=== PATIENT | female | born 1945 | race Caucasian/White ===

== ENCOUNTER 2016-08-17 11:38 | Emergency (ER) | payer OTHER ==
[~2016-08-17] VITALS: Ht 162.6 cm; Wt 49.9 kg
[~2016-08-17 11:38] MED LIST: ASPIR 8181 MG PO; ATENOLOL25 MG PO; CALCIUM + D 5001 TAB PO; CLONAZEPAM0.5 MG PO; ECOTRIN81 M1 PO; KLONOPIN0.5 M1 PO; LEVAQUIN250 MG PO; LISINOPRIL10 M1 PO; LISINOPRIL10 MG PO; MEDROL4 M2 AD; NAPROSYN500 M1 PO; NATURE'S BLEND500 M1 PO; OMEPRAZOLE40 MG PO; TRAMADOL HCL50 M1 PO; TYLENOL #31 TAB PO; ZOCOR 40MG TAB40 MG PO; ZOCOR40 M1 PO
[2016-08-17 11:48] VITALS: BP 185/68
--- NOTE | 2016-08-17 15:14 | ED CARDIAC/CP/PALPITATIONS ---
History of Present Illness General Chief Complaint: Palpitations Stated Complaint: PALPATATIONS Source: patient Exam Limitations: no limitations Vital Signs & Intake/Output Vital Signs & Intake/Output Vital Signs Date Time Temp Pulse Resp B/P Pulse O2 O2 Flow FiO2 Ox Delivery Rate 08/17 1523 97 08/17 1148 97.8 80 20 185/68 97 Room Air Allergies Coded Allergies: Penicillins (ANAPHYLAXIS - TONGUE SWELLED - HOSPITALIZATION 10/07/15) clarithromycin (MOUTH AND THROAT BURNING - HOSPITALIZATION 10/07/15) propoxyphene (FELT WEIRD AND FELT IN ANOTHER WORLD PER PT 10/07/15) tetracycline (UNKNOWN PER PT 10/07/15) Reconcile Medications Aspirin (Ecotrin) 81 MG TABLET.DR 1 TAB PO QPM BLOOD (Reported) Atenolol 25 MG TABLET 1 TAB PO DAILY BP (Reported) Calcium/Vitamin D (Calcium + D) 500 MG/125 IU TAB 1 TAB PO DAILY SUPPLEMENT ( Reported) Clonazepam (Klonopin) 0.5 MG TABLET 1 TAB PO BID ANXIETY (Reported) Clonazepam (Klonopin) 0.5 MG TABLET 1 TAB PO BIDP PRN ANXIETY Lisinopril 10 MG TABLET 1 TAB PO DAILY BP (Reported) Methylprednisolone. (Medrol) 4 MG TAB.DS.PK 1 TAB AD DAILY INFLAMMATION Naproxen (Naprosyn) 500 MG TABLET 1 TAB PO TID PRN PAIN Simvastatin (Zocor*) 40 MG TABLET 1 TAB PO DAILY CHOLESTEROL (Reported) Tramadol HCl 50 MG TABLET 1 TAB PO TID PRN PAIN Triage Note: PT TO ED C/O "HEART POUNDING" AND ANXIETY. STATES SHE HAS BEEN TAKING 0.25MG KLONOPIN BID AND WAS TOLD BY HER PCP THAT THEY COULD NO LONGER FILL IT. PT STATES LAST DOSE WAS YESTERDAY AFTERNOON. STATES SHE FEELS ANXIOUS ABOUT NOT BEING ABLE TO GET A REFILL OF HER KLONOPIN. TEARFUL IN TRIAGE. DENIES PAIN, C/P, DIFF BREATHING. Triage Nurses Notes Reviewed? yes Onset: Gradual Duration: worse persistent since (1 DAY) Timing: recent history Quality/Severity: moderate Radiation: no radiation Activities at Onset: none HPI: Patient is a 71-year-old female with history of anxiety and panic attacks and takes Klonopin presenting to the emergency department with chief complaint of palpitations that worsened this morning. She reports extensive history of panic attacks. She was nervous because she only has 2 pills left. She saw her primary care physician this morning and was advised to come to the emergency department for evaluation because he cannot longer prescribe her that medication. She tried calling outpatient psychiatry, she is on a waiting list. Denies any suicidal or homicidal ideation. Denies any chest pain or shortness of breath. She reports that this morning this felt typical of her panic attacks. It made her nervous to know she only has 2 pills left. She went online and read that she could if she does not hear Klonopin. Denies any nausea or vomiting fevers or chills. No shortness of breath. Denies recent travel. (KAZ TORRES) Past History Travel History Traveled to [place] past 21 day No Medical History Any Pertinent Medical History? see below for history Neurological: NONE EENT: NONE Cardiovascular: hypertension, hyperlipidemia Respiratory: NONE Gastrointestinal: NONE Hepatic: NONE Renal: NONE Musculoskeletal: NONE Psychiatric: anxiety Endocrine: NONE Blood Disorders: NONE Cancer(s): NONE Surgical History Surgical History: non-contributory Psychosocial History What is your primary language Albanian Tobacco Use: Never used ETOH Use: denies use Illicit Drug Use: denies illicit drug use Family History Hx Contributory? No (KAZ TORRES) Review of Systems Review of Systems Constitutional: Reports: no symptoms. Comments Review of systems: See HPI, All other systems negative. Constitutional, no chills fever or weight loss HEENT: No visual changes no sore throat no congestion Cardiovascular: No chest pain , orthopnea or ankle swelling Skin, no jaundice no rashes Respiratory: No dyspnea cough sputum or hemoptysis GI: No nausea no vomiting : No dysuria No hematuria Muscle skeletal: no back pain, no neck pain, Neurologic: No numbness no confusion and no headaches Psych: Positive anxiety, denies increased depression Heme/endocrine: No bruising no bleeding no polyuria or polydipsia Immunology: No splenectomy or history of AIDS (KAZ TORRES) Physical Exam Physical Exam General Appearance: well developed/nourished, no apparent distress, alert, awake , comfortable Cardiovascular: regular rate/rhythm Comments: Well-developed well-nourished person in no acute distress HEENT: Pupils equally round and reactive to light and accommodation. Nose is atraumatic. Neck: Normal inspection Back: Nontender, no CVA tenderness. Full range of motion Cardiovascular: Regular rate and rhythms no murmurs rubs or gallops, normal JVP Respiratory: Chest nontender. No respiratory distress.breath sounds clear to auscultation bilaterally Extremity: No edema Neuro: Alert oriented x3, motor sensory normal Skin: No appreciable rash on exposed skin, skin is warm and dry. Psych: Mood and affect is normal, memory and judgment is normal. Core Measures ACS in differential dx? No Severe Sepsis Present: No Septic Shock Present: No (KAZ TORRES) Progress Differential Diagnosis: ANXIETY, DEPRESSION, MEDICATION REFILL, DEHYDRATION Plan of Care: Orders Procedure Date/time Status TROPONIN LEVEL 08/17 1151 Complete MAGNESIUM 08/17 1151 Complete COMPREHENSIVE METABOLIC PANEL 08/17 1151 Complete EKG 08/17 1140 Active Current Medications Sig/Emmy Start time Last Medication Dose Stop Time Status Admin Lorazepam 0.5 MG ONE ONE 08/17 1515 CAN (Ativan) 08/17 1516 Laboratory Tests 08/17/16 1231: Anion Gap 11, Estimated GFR 55 L, BUN/Creatinine Ratio 23.0, Glucose 115 H, Calcium 10.7 H, Magnesium 1.8, Total Bilirubin 0.5, AST 26, ALT 30, Alkaline Phosphatase 79, Troponin I < 0.01, Total Protein 7.3, Albumin 4.3, Globulin 3.0, Albumin/Globulin Ratio 1.4 08/17/16 1151: CBC w Diff Cancelled, WBC Cancelled, RBC Cancelled, Hgb Cancelled, Hct Cancelled , MCV Cancelled, MCH Cancelled, RDW Cancelled, Plt Count Cancelled, MPV Cancelled, PUBS MCHC Cancelled Initial ED EKG: NSR, SINUS RHYTHM, 70 BPM, LEFT AXIS DEVIATION, ANTERIOR INFARCT OLD Prior EKG: unchanged Comments: Patient is calm and cooperative, vitals within normal range. Patient essentially referring to the emergency department for evaluation of palpitations from chronic panic attacks and medication refill. No acute distress at this time. EKG is unchanged. Patient will be given prescriptions for Klonopin and will follow up outpatient with psychiatry. Discussed with Dr. Chavira and she agrees with plan. (KAZ TORRES) Departure Departure Time of Disposition: 1512 Disposition: HOME OR SELF CARE Condition: Stable Clinical Impression Primary Impression: Palpitations Secondary Impressions: Anxiety Referrals: CATHERINE SNOW MD (PCP/Family) Additional Instructions: Follow-up with your primary care physician cALL TO MAKE APPT. Take Klonopin as prescribed. Return for worsening symptoms or concerns. Departure Forms: Customer Survey General Discharge Information Prescriptions: Current Visit Scripts Clonazepam (Klonopin) 1 TAB PO BIDP PRN ANXIETY #12 TAB (KAZ TORRES) PA/CIRCUIT MANAGER Co-Sign Statement Statement: ED Attending supervision documentation- [X] I saw and evaluated the patient. I have also reviewed all the pertinent lab results and diagnostic results. I agree with the findings and the plan of care as documented in the PA's/CIRCUIT MANAGER's documentation. [X] I have reviewed the ED Record and agree with the PA's/CIRCUIT MANAGER's documentation. [] Additions or exceptions (if any) to the PAs/CIRCUIT MANAGER's note and plan are summarized below: [] (ELISEO STRATTON,LLOYD) Critical Care Note Critical Care Note Critical Care Time: non-applicable (KAZ TORRES)
[2016-08-17] MEDS ORDERED: KLONOPIN0.5 M1 PO (15:23)
== END 2016-08-17 15:45 ==
LOC: ERH 11:38
DX: R00.2 Palpitations (principal); F41.9 Anxiety disorder, unspecified
CPT/HCPCS: 93005; 93010

== ENCOUNTER 2016-09-05 12:04 | Emergency (ER) | payer OTHER ==
[~2016-09-05] VITALS: Ht 163.8 cm; Wt 49.0 kg
[2016-09-05 12:13] VITALS: BP 124/72
[2016-09-05] MEDS ORDERED: CLONAZEPAM0.5 M2 PO (12:46)
[2016-09-05] MEDS ORDERED: PHAZYME250 MG PO (12:46)
--- NOTE | 2016-09-05 12:48 | ED GENERAL ADULT ---
History of Present Illness General Chief Complaint: General Adult Stated Complaint: ANXIOUS,"I HAVE GAS ALL THE TIME" Source: patient, family, old records Exam Limitations: no limitations Vital Signs & Intake/Output Vital Signs & Intake/Output Vital Signs Date Time Temp Pulse Resp B/P Pulse O2 O2 Flow FiO2 Ox Delivery Rate 09/05 1213 96.7 59 18 124/72 95 Room Air Room Air Allergies Coded Allergies: Penicillins (ANAPHYLAXIS - TONGUE SWELLED - HOSPITALIZATION 10/07/15) clarithromycin (MOUTH AND THROAT BURNING - HOSPITALIZATION 10/07/15) propoxyphene (FELT WEIRD AND FELT IN ANOTHER WORLD PER PT 10/07/15) tetracycline (UNKNOWN PER PT 10/07/15) Reconcile Medications Aspirin (Ecotrin) 81 MG TABLET.DR 1 TAB PO QPM BLOOD (Reported) Atenolol 25 MG TABLET 1 TAB PO DAILY BP (Reported) Calcium/Vitamin D (Calcium + D) 500 MG/125 IU TAB 1 TAB PO DAILY SUPPLEMENT ( Reported) Clonazepam (Klonopin) 0.5 MG TABLET 1 TAB PO BID ANXIETY (Reported) Clonazepam 0.5 MG TABLET 0.5 TAB PO BIDP PRN anxiety Clonazepam (Klonopin) 0.5 MG TABLET 1 TAB PO BIDP PRN ANXIETY Lisinopril 10 MG TABLET 1 TAB PO DAILY BP (Reported) Methylprednisolone. (Medrol) 4 MG TAB.DS.PK 1 TAB AD DAILY INFLAMMATION Naproxen (Naprosyn) 500 MG TABLET 1 TAB PO TID PRN PAIN Simethicone (Phazyme) 250 MG CAPSULE 1 CAP PO Q6P PRN gas Simvastatin (Zocor*) 40 MG TABLET 1 TAB PO DAILY CHOLESTEROL (Reported) Tramadol HCl 50 MG TABLET 1 TAB PO TID PRN PAIN Triage Note: TRIAGE: 71 Y/O FEMALE PRESENTS C/O "I HAVE A LOT OF GAS." ONSET WEDNESDAY NIGHT AFTER INGESTION OF ICE CREAM AND FRAPPE. "I'VE HAD THIS PROBLEM BEFORE. I HAVE THE GURGLING IN MY STOMACH." REGULAR BOWEL MOVEMENTS, LAST BM THIS MORNING. +ANXIETY - 0.5MG KLONOPIN. "MY PCP IS NO LONGER ALLOWED TO WRITE FOR THEM. THE OUTPATIENT PLACE COULDN'T GET ME AN APPOINTMENT UNTIL THIS UPCOMING WEDNESDAY. I'M DOWN TO 2 PILLS. I WAS TOLD TO COME HERE IF I RAN INTO ANY ISSUES." CARD IN WALLET. Triage Nurses Notes Reviewed? yes Onset: Last week Duration: day(s):, constant, continues in ED Timing: recent history Injury Environment: home Severity: moderate Modifying Factors: Improves With: medication. Worsens With: eating, other (lactose sugar). LMP (ages 10-50): post menopausal : No Patient currently breastfeeds: No HPI: Several days prior to admission she complains of increased gas after eating ice cream and drinking frappe with mild generalized abdominal discomfort nonradiating occurring intermittently. She is also worried that she will run out of Klonopin as her prescriber can no longer write for it. Denies fever chills nausea vomiting diarrhea chest pain cough shortness of breath headache dysuria rash bleeding. Past History Travel History Traveled to [place] past 21 day No Medical History Any Pertinent Medical History? see below for history Neurological: NONE EENT: NONE Cardiovascular: hypertension, hyperlipidemia Respiratory: NONE Gastrointestinal: NONE Hepatic: NONE Renal: NONE Musculoskeletal: NONE Psychiatric: anxiety Endocrine: NONE Blood Disorders: NONE Cancer(s): NONE Surgical History Surgical History: non-contributory Psychosocial History What is your primary language Bengali Tobacco Use: Never used ETOH Use: denies use Illicit Drug Use: denies illicit drug use Family History Hx Contributory? No Review of Systems Review of Systems Constitutional: Reports: no symptoms. EENTM: Reports: no symptoms. Respiratory: Reports: no symptoms. Cardiovascular: Reports: no symptoms. GI: Reports: see HPI, abdominal pain, bloating. Genitourinary: Reports: no symptoms. Musculoskeletal: Reports: no symptoms. Skin: Reports: no symptoms. Neurological/Psychological: Reports: see HPI, anxiety. Hematologic/Endocrine: Reports: no symptoms. Immunologic/Allergic: Reports: no symptoms. All Other Systems: Reviewed and Negative Physical Exam Physical Exam General Appearance: well developed/nourished, alert, awake, anxious, mild distress Head: atraumatic, normal appearance Eyes: Bilateral: normal appearance, PERRL, EOMI. Ears, Nose, Throat: normal pharynx, normal ENT inspection, moist mucus membranes Neck: normal inspection, supple, full range of motion, no midline tenderness Respiratory: normal breath sounds, chest non-tender, no respiratory distress, quiet respiration, lungs clear Cardiovascular: regular rate/rhythm, normal peripheral pulses, norml femoral pulses equa Peripheral Pulses: 4+ carotid (R), 4+ carotid (L) Gastrointestinal: normal bowel sounds, soft, non-tender, no organomegaly Back: normal inspection, normal range of motion, no vertebral tenderness Extremities: normal inspection, normal capillary refill, normal range of motion, no edema Neurologic/Psych: no motor/sensory deficits, awake, alert, oriented x 3, normal gait, normal mood/affect, steel erector apprentice II-XII nml as tested Reflexes: 2+: bicep (R), bicep (L). Skin: intact, normal color, warm/dry Lymphatic: no anterior cervical seda Core Measures ACS in differential dx? No CVA/TIA Diagnosis: No Severe Sepsis Present: No Septic Shock Present: No Progress Differential Diagnoses I considered the following diagnoses in my evaluation of the patient: Gastritis anxiety food indiscretion Plan of Care: Current Medications Sig/Emmy Start time Last Medication Dose Stop Time Status Admin Al Hydroxide/Mg 30 ML ONCE ONE 09/05 1245 UNVr Hydroxide 09/05 1246 (Maalox Plus) Clonazepam 0.25 MG ONCE ONE 09/05 1245 UNVr (KlonoPIN) 09/05 1246 Initial ED EKG: none Departure Departure Time of Disposition: 1243 Disposition: HOME OR SELF CARE Condition: Stable Clinical Impression Primary Impression: Lactose intolerance in adult Secondary Impressions: Medication refill Referrals: EDY STRATTON,CATHERINE Rojo (PCP/Family) Departure Forms: Customer Survey General Discharge Information Prescriptions: Current Visit Scripts Simethicone (Phazyme) 1 CAP PO Q6P PRN gas #30 CAP Clonazepam 0.5 TAB PO BIDP PRN anxiety #10 TAB Critical Care Note Critical Care Note Critical Care Time: non-applicable
== END 2016-09-05 13:04 ==
LOC: ERH 12:04
DX: E73.9 Lactose intolerance, unspecified (principal); Z76.0 Encounter for issue of repeat prescription

== ENCOUNTER 2017-08-06 10:48 | Inpatient (IN) | payer OTHER ==
[~2017-08-06] VITALS: Ht 163.8 cm; Wt 48.5 kg
[~2017-08-06 10:48] MED LIST changes: +ASPIRIN EC81 M1 PO; +ATENOLOL25 M1 PO; -ATENOLOL25 MG PO; +CLONAZEPAM0.5 M2 PO; -ECOTRIN81 M1 PO; +PHAZYME250 MG PO; +VITAMIN D350000 UNIT PO
--- NOTE | 2017-08-06 11:10 | ED GENERAL ADULT ---
History of Present Illness General Chief Complaint: General Adult Stated Complaint: BIBA "DOESNT FEEL WELL' Source: patient, family Exam Limitations: no limitations Vital Signs & Intake/Output Vital Signs & Intake/Output Vital Signs Date Time Temp Pulse Resp B/P B/P Pulse O2 O2 Flow FiO2 Mean Ox Delivery Rate 08/07 0600 98.0 56 18 144/72 98 08/06 1901 64 18 160/76 100 Room Air 02 1858 64 18 160/76 02 1631 74 18 190/80 100 Room Air 08/06 1603 98.9 88 20 180/86 99 Room Air 08/06 1437 98.7 66 18 185/74 98 ED Intake and Output 08/07 0000 08/06 1200 Intake Total 70 Output Total 150 Balance -80 Intake, IV 70 Intake, Oral 0 Number 0 Bowel Movements Output, Urine 150 Patient 107 lb 107 lb Weight Weight Reported by Patient Reported by Patient Measurement Method Allergies Coded Allergies: Penicillins (ANAPHYLAXIS - TONGUE SWELLED - HOSPITALIZATION 10/07/15) clarithromycin (MOUTH AND THROAT BURNING - HOSPITALIZATION 10/07/15) propoxyphene (FELT WEIRD AND FELT IN ANOTHER WORLD PER PT 10/07/15) tetracycline (UNKNOWN PER PT 10/07/15) Reconcile Medications Aspirin (Ecotrin*) 81 MG TABLET.DR 1 TAB PO DAILY HEART HEALTH (Reported) Atenolol 25 MG TABLET 1 TAB PO DAILY HIGH BLOOD PRESSURE (Reported) Cholecalciferol (Vitamin D3) (Vitamin D) 5,000 UNIT TABLET 1 TAB PO DAILY SUPPLEMENT (Reported) Clonazepam (Klonopin) 0.5 MG TABLET 0.5 TAB PO DAILY ANXIETY (Reported) Lisinopril 10 MG TABLET 1 TAB PO DAILY BP (Reported) Simvastatin (Zocor*) 40 MG TABLET 1 TAB PO DAILY CHOLESTEROL (Reported) Triage Note: BIBA FROM HOME, PT C/O "DON'T FEEL RIGHT", PT TEARY ON ARRIVAL "I HAVE A LOT OF STRESS, AND HAD A PANIC ATTACK, I TOOK MY MED FOR IT BUT ONLY A HALF HOUR AGO" "MY 5 YEARS AGO, AND I HAVE A SON WITH A CHEMICAL IMBALANCE THAT I HAVE TO TAKE CARE OF". Triage Nurses Notes Reviewed? yes Onset: Abrupt Duration: hour(s):, constant, continues in ED Timing: recent history Injury Environment: home No Modifying Factors: none HPI: 72-year-old female comes into the emergency room for further evaluation of not feeling well this morning. Patient reports that she woke up this morning and started to experience multiple symptoms. She was feeling lightheaded. She is complaining of a funny sensation in her chest and some numbness in her left arm and right arm. She denies any fever chills vomiting. She reports that she is currently under a lot of stress. The year anniversary of her 's is coming out in a couple weeks. Denies any shortness of breath. Nothing seems to make the symptoms better. She reports that she's been recently experiencing headaches on the right side. She saw her primary care doctor who told her he thought it was related to pinched nerve in her neck from arthritis. She reports that she was taking Tylenol for the headaches and they seemed to be improving. (Joshua Christensen) Past History Travel History Traveled to [place] past 21 day No Medical History Any Pertinent Medical History? 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 No (Joshua Christensen) Review of Systems Review of Systems Constitutional: Reports: see HPI. EENTM: Reports: no symptoms. Respiratory: Reports: see HPI. Cardiovascular: Reports: see HPI. GI: Reports: no symptoms. Genitourinary: Reports: no symptoms. Musculoskeletal: Reports: see HPI. Skin: Reports: no symptoms. Neurological/Psychological: Reports: see HPI. Hematologic/Endocrine: Reports: no symptoms. Immunologic/Allergic: Reports: no symptoms. All Other Systems: Reviewed and Negative (Joshua Christensen) Physical Exam Physical Exam General Appearance: well developed/nourished, alert, awake, anxious Head: atraumatic, normal appearance Eyes: Bilateral: normal appearance, PERRL, EOMI. Ears, Nose, Throat: normal pharynx, normal ENT inspection, hearing grossly normal Neck: normal inspection, full range of motion Respiratory: normal breath sounds, no respiratory distress Cardiovascular: regular rate/rhythm Gastrointestinal: soft, non-tender Back: normal inspection Extremities: normal inspection, normal range of motion, no edema Neurologic/Psych: no motor/sensory deficits, awake, oriented x 3, normal gait, normal mood/affect Skin: intact, normal color Core Measures ACS in differential dx? No CVA/TIA Diagnosis: No Sepsis Present: No Sepsis Focused Exam Completed? No (Joshua Christensen) Progress Differential Diagnoses I considered the following diagnoses in my evaluation of the patient: Anxiety, MN, CVA, TIA, electrolyte imbalance, anemia, Plan of Care: Orders Procedure Date/time Status CBC WITHOUT DIFFERENTIAL 08/08 0600 Active BASIC ELECTROLYTES PLUS BUN&CR 08/08 0600 Active Nothing by Mouth 08/07 B Active PARTIAL THROMBOPLASTIN TIME 08/07 1715 Active PARTIAL THROMBOPLASTIN TIME 08/07 0600 Complete CBC WITHOUT DIFFERENTIAL 08/07 0600 Complete BASIC ELECTROLYTES PLUS BUN&CR 08/07 0600 Complete Heparin Drip- ACS 08/07 0012 Active EKG 08/07 UNK Active EKG 08/06 2311 Active PARTIAL THROMBOPLASTIN TIME 08/06 2300 Complete TROPONIN LEVEL 08/06 2200 Complete EKG 08/06 2200 Active Teach/Educate 08/06 1930 Active Pain Treatment and Response 08/06 1930 Active Nutritional Intake, Monitor 08/06 193 Active Isolation 08/06 1930 Active Patient Care Conference 08/06 1930 Active Activity/Ambulation 08/06 1930 Active Intake & Output 08/06 1922 Active Patient Data 08/06 1634 Active TROPONIN LEVEL 08/06 1609 Complete EKG 08/06 1609 Active ED Holding Orders 08/06 1603 Active Admit to inpatient 08/06 1603 Active Vital Signs 08/06 1603 Active Code Status 08/06 1603 Active TROPONIN LEVEL 08/06 1430 Complete EKG 08/06 1430 Active THYROID STIMULATING HORMONE 08/06 1128 Active LIPID PANEL 08/06 1128 Active GLYCOSYLATED HGB 08/06 1128 Active Lab Add-on Test 08/06 UNK Active ECHOCARDIOGRAM 08/06 UNK Active Current Medications Sig/Emmy Start time Last Medication Dose Stop Time Status Admin Clonazepam 0.25 MG TIDPRN 08/07 1815 AC 08/07 (KlonoPIN) 08/14 0959 0821 Atorvastatin Calcium 40 MG 1700 08/07 1700 AC (Lipitor) Aspirin Buffered 81 MG DAILY 08/07 1000 AC 08/07 (Ecotrin) 0821 Atenolol 25 MG DAILY 08/07 1000 AC 08/07 (Tenormin) 0822 Clopidogrel Bisulfate 75 MG DAILY 08/07 1000 AC 08/07 (Plavix) 0822 Nitroglycerin 0.5 GM Q6 PRN 08/06 2245 AC (Nitro-Bid) Metoprolol Tartrate 12.5 MG BID 08/06 2200 CAN (Lopressor) Acetaminophen 500 MG Q6P PRN 08/06 2030 AC (Tylenol) Acetaminophen 500 MG Q6P PRN 08/06 2030 AC (Tylenol) Lisinopril 10 MG DAILY 08/06 1808 AC 08/07 (Prinivil) 0822 Heparin Sodium 25,000 UNIT Q24H 08/06 1545 AC 08/06 (Porcine) 1735 (Heparin) Sodium Chloride 500 ML Laboratory Tests 08/07/17 0630: Anion Gap 12, Estimated GFR > 60, BUN/Creatinine Ratio 23.8, APTT 52 H, CBC w Diff NO MAN DIFF REQ, RBC 3.82 L, MCV 87.3, MCH 29.4, MCHC 33.7, RDW 12.7, MPV 8.3, Gran % 68.6, Lymphocytes % 19.2 L, Monocytes % 9.8 H, Eosinophils % 1.6, Basophils % 0.8, Absolute Granulocytes 3.8, Absolute Lymphocytes 1.1 L, Absolute Monocytes 0.5, Absolute Eosinophils 0.1, Absolute Basophils 0 08/06/17 2255: Troponin I 0.12 *H, APTT > 120 *H 08/06/17 1609: Troponin I 0.16 *H 08/06/17 1440: Troponin I 0.16 *H Diagnostic Imaging: Viewed by Me: Radiology Read, CT Scan. Discussed w/RAD: Radiology Read, CT Scan. Radiology Impression: PATIENT: PAIGE WRIGHT PRESENT AGE: 72 PATIENT ACCOUNT NO: [id number] : 45 LOCATION: [facility] ORDERING PHYSICIAN: Joshua HIDALGO SERVICE DATE: 08/06/17-1434 EXAM TYPE: RAD - XRY-CHEST XRAY, SINGLE VIEW EXAMINATION:\\H\\ \\N\\XR CHEST CLINICAL INFORMATION: Apical lordotic view recommended to assess abnormality left lung apex on chest x -ray today COMPARISON: Prior chest x-ray today TECHNIQUE: Portable apical lordotic view obtained. FINDINGS: The small metallic foreign bodies seen over the left lung apex on the prior portable chest x-ray today is not on this exam. Consistent with a artifact. No acute abnormality of the chest. IMPRESSION: Small metallic foreign body seen on the prior chest x-ray today is not on this exam consistent with artifact. No acute change of chest. DICTATED BY: Waldemar Martinez MD DATE/TIME DICTATED:08/06/171517 LANG PATH THERAPIST:JERRI DATE/TIME TRANSCRIBED:08/06/171517 CONFIDENTIAL, DO NOT COPY WITHOUT APPROPRIATE AUTHORIZATION. <Electronically signed in Other Vendor System> SIGNED BY: Waldemar Martinez MD 08/06/17 1523, PATIENT: PAIGE WRIGHT PRESENT AGE: 72 PATIENT ACCOUNT NO: [id number] : 45 LOCATION: [facility] ORDERING PHYSICIAN: Joshua HIDALGO SERVICE DATE: 08/06/17 EXAM TYPE : RAD - XRY-PORTABLE CHEST XRAY EXAMINATION: XR PORTABLE CHEST CLINICAL INFORMATION: Chest pain. COMPARISON: Chest x-ray 11/25/2015. TECHNIQUE: Portable AP portable 80 degrees semierect view of the chest was obtained. FINDINGS: The lung alejo are well-expanded bilaterally. There is a relatively well-defined 2 mm hyperdensity projected between the posterior left second and third ribs which was not seen on the prior study. It may be artifactual or a small foreign body. The cardiac silhouette is normal. There are no pleural effusions or pneumothorax. The central pulmonary vasculature is normal. The hilar regions appear normal. There are no acute osseous findings. IMPRESSION: 1. There are no acute cardiopulmonary findings. 2. A density projected over the posterior left second and third ribs may be artifactual. This could be further evaluated with a lordotic view of the chest. DICTATED BY: Barney Grey MD DATE/TIME DICTATED:08/22 LANG PATH THERAPIST:JERRI DATE/TIME TRANSCRIBED:08/06/171155 CONFIDENTIAL, DO NOT COPY WITHOUT APPROPRIATE AUTHORIZATION. <Electronically signed in Other Vendor System> SIGNED BY: Barney Grey MD 08/06/17 1204, PATIENT: PAIGE WRIGHT PRESENT AGE: 72 PATIENT ACCOUNT NO: [id number] : 45 LOCATION: [facility] ORDERING PHYSICIAN: Joshua HIDALGO SERVICE DATE: 08/06/17 EXAM TYPE: CAT - CT HEAD WO IV CONTRAST EXAMINATION: CT HEAD WITHOUT CONTRAST CLINICAL INFORMATION: Headaches and numbness. COMPARISON: CT scan of the head 04/30/2017. TECHNIQUE: Contiguous axial imaging was performed from the skull base to vertex without intravenous administration of contrast. DLP: 601.7 mGy-cm FINDINGS: There is no evidence of acute intracranial hemorrhage or territorial infarction. No abnormal mass effect or midline shift is seen. Rico to white matter differentiation is well preserved. No extra-axial fluid collections are identified. The ventricles are normal in size. There is no abnormal attenuation within the brain parenchyma. The osseous structures and soft tissues are normal. There are atheromatous calcifications of the bilateral cavernous internal carotid and left vertebral arteries. The mastoid air cells and visualized portions of the paranasal sinuses are well aerated. IMPRESSION: 1. There are no acute bleeds or territorial infarcts. No masses are demonstrated. 2. There is no mastoid air cell or paranasal sinus opacification. DICTATED BY: Barney Grey MD DATE/TIME DICTATED: 08/06/171135 LANG PATH THERAPIST:JERRI DATE/TIME TRANSCRIBED:08/06/171135 CONFIDENTIAL, DO NOT COPY WITHOUT APPROPRIATE AUTHORIZATION. <Electronically signed in Other Vendor System> SIGNED BY: Barney Grey MD 08/06/17 1149 Initial ED EKG: normal sinus rhythm, rate (67) Repeat EKG: unchanged (Joshua Christensen) Departure Departure Disposition: STILL A PATIENT Condition: Stable Clinical Impression Primary Impression: Non-STEMI (non-ST elevated myocardial infarction) Referrals: Allen Metcalf MD (PCP/Family) Departure Forms: Customer Survey General Discharge Information Admission Note Spoke With: Tano Epstein MD Documentation of Exam: Documentation of any treatments & extenuating circumstances including Concerns Regarding Discharge (functional status, medication knowledge or non-compliance, living conditions, etc.) that warrant an admission rather than observation: Patient will require IV heparin. Cardiac telemetry. Serial troponins. Cardiac consultation. Echocardiogram. (Joshua Christensen) PA/RETORT PRESS OPERATOR Co-Sign Statement Statement: ED Attending supervision documentation- [X] I saw and evaluated the patient. I have also reviewed all the pertinent lab results and diagnostic results. I agree with the findings and the plan of care as documented in the PA's/RETORT PRESS OPERATOR's documentation. [X] I have reviewed the ED Record and agree with the PA's/RETORT PRESS OPERATOR's documentation. [] Additions or exceptions (if any) to the PAs/RETORT PRESS OPERATOR's note and plan are summarized below: [] (Cait STRATTON,Steph) Critical Care Note Critical Care Note Critical Care Time: non-applicable (Joshua Christensen)
[2017-08-06 11:36] LABS: ABSOLUTE BASOPHIL COUNT 0 /CUMM (0.0-0.2); ABSOLUTE EOSINOPHIL COUNT 0.1 /CUMM (0.0-0.7); ABSOLUTE GRANULOCYTE CT 4.4 /CUMM (1.4-6.5); ABSOLUTE LYMPH COUNT 0.6 /CUMM (1.2-3.4); ABSOLUTE MONOCYTE COUNT 0.4 /CUMM (0.10-0.60); BASOPHIL % 0.5 % (0.0-2.0); EOSINOPHIL % 1.1 % (0-5); GRANULOCYTE % 80.7 % (42.2-75.2); HEMATOCRIT 38.3 % (37-47); MEAN CORPUSCULAR HGB 29.1 PG (27.0-31.0); MEAN CORPUSCULAR HGB CONC 33.3 G/DL (33.0-37.0); MEAN CORPUSCULAR VOLUME 87.5 FL (81.0-99.0); MEAN PLATELET VOLUME 7.4 FL (7.4-10.4); PLATELET COUNT 198 /CUMM (130-400); RBC DISTRIBUTION WIDTH 12.8 % (11.5-14.5); RED BLOOD CELL CT 4.37 /CUMM (4.20-5.40); WHITE BLOOD CELL COUNT 5.5 /CUMM (4.8-10.8)
--- NOTE | 2017-08-06 11:49 | CT SCAN REPORT ---
EXAMINATION: CT HEAD WITHOUT CONTRAST CLINICAL INFORMATION: Headaches and numbness. COMPARISON: CT scan of the head 04/30/2017. TECHNIQUE: Contiguous axial imaging was performed from the skull base to vertex without intravenous administration of contrast. DLP: 601.7 mGy-cm FINDINGS: There is no evidence of acute intracranial hemorrhage or territorial infarction. No abnormal mass effect or midline shift is seen. Rico to white matter differentiation is well preserved. No extra-axial fluid collections are identified. The ventricles are normal in size. There is no abnormal attenuation within the brain parenchyma. The osseous structures and soft tissues are normal. There are atheromatous calcifications of the bilateral cavernous internal carotid and left vertebral arteries. The mastoid air cells and visualized portions of the paranasal sinuses are well aerated. IMPRESSION: 1. There are no acute bleeds or territorial infarcts. No masses are demonstrated. 2. There is no mastoid air cell or paranasal sinus opacification.
--- NOTE | 2017-08-06 12:04 | RADIOLOGY REPORT ---
EXAMINATION: XR PORTABLE CHEST CLINICAL INFORMATION: Chest pain. COMPARISON: Chest x-ray 11/25/2015. TECHNIQUE: Portable AP portable 80 degrees semierect view of the chest was obtained. FINDINGS: The lung alejo are well-expanded bilaterally. There is a relatively well-defined 2 mm hyperdensity projected between the posterior left second and third ribs which was not seen on the prior study. It may be artifactual or a small foreign body. The cardiac silhouette is normal. There are no pleural effusions or pneumothorax. The central pulmonary vasculature is normal. The hilar regions appear normal. There are no acute osseous findings. IMPRESSION: 1. There are no acute cardiopulmonary findings. 2. A density projected over the posterior left second and third ribs may be artifactual. This could be further evaluated with a lordotic view of the chest.
--- NOTE | 2017-08-06 15:23 | RADIOLOGY REPORT ---
EXAMINATION:\H\ \N\XR CHEST CLINICAL INFORMATION: Apical lordotic view recommended to assess abnormality left lung apex on chest x-ray today COMPARISON: Prior chest x-ray today TECHNIQUE: Portable apical lordotic view obtained. FINDINGS: The small metallic foreign bodies seen over the left lung apex on the prior portable chest x-ray today is not on this exam. Consistent with a artifact. No acute abnormality of the chest. IMPRESSION: Small metallic foreign body seen on the prior chest x-ray today is not on this exam consistent with artifact. No acute change of chest.
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
[2017-08-06] MEDS ORDERED: VITAMIN D5000 UNIT PO (16:43)
--- NOTE | 2017-08-06 20:30 | Admission Certification ---
Admission Certification Certification Statement - As attending physician, I certify that at the time of - admission, based on clinical presentation, severity of - symptoms, need for further diagnostic testing and - therapeutic interventions, and risk of adverse outcomes - without in-hospital treatment, in my clinical assessment, - this patient requires an acute hospital stay for a minimum - of two nights or longer. I have also considered psychsocial - factors such as support system, advanced age, financial - issues, cognitive issues, and failed out-patient treatments, - past re-admission history, safety of patient, and lack of - compliance as applicable. Specific rationale supporting this admission is: NSTEMI
--- NOTE | 2017-08-06 20:56 | Cons- Cardiology ---
General Information and HPI Consulting Request Date of Consult: 08/06/17 Requested By: Tano Epstein MD History of Present Illness: Anabella is a 72 year old female with history of anxiety, dyslipidemia and hypertension. Over the past few days this patient has noted a left neck and posterior neck discomfort. This discomfort was associated with a paresthesia in he left arm and a left shoulder discomfort without any definite predordial chest pain. She denies shortness of breath but has had some lightheadedness and palpitations. She denies nausea, vomiting or diaphoresis. In the ER the patient was noted to be very hypertensive. This patient is noted to have a positive troponin. Allergies/Medications Allergies: Coded Allergies: Penicillins (ANAPHYLAXIS - TONGUE SWELLED - HOSPITALIZATION 10/07/15) clarithromycin (MOUTH AND THROAT BURNING - HOSPITALIZATION 10/07/15) propoxyphene (FELT WEIRD AND FELT IN ANOTHER WORLD PER PT 10/07/15) tetracycline (UNKNOWN PER PT 10/07/15) Home Med List: Aspirin (Ecotrin*) 81 MG TABLET.DR 1 TAB PO DAILY HEART HEALTH (Reported) Atenolol 25 MG TABLET 1 TAB PO DAILY HIGH BLOOD PRESSURE (Reported) Cholecalciferol (Vitamin D3) (Vitamin D) 5,000 UNIT TABLET 1 TAB PO DAILY SUPPLEMENT (Reported) Clonazepam (Klonopin) 0.5 MG TABLET 0.5 TAB PO DAILY ANXIETY (Reported) Lisinopril 10 MG TABLET 1 TAB PO DAILY BP (Reported) Simvastatin (Zocor*) 40 MG TABLET 1 TAB PO DAILY CHOLESTEROL (Reported) Review of Systems Review of Systems: anxiety Past History Travel History Traveled to [place] past 21 day No Medical History Neurological: NONE EENT: NONE Cardiovascular: hypertension, hyperlipidemia Respiratory: NONE Gastrointestinal: NONE Hepatic: NONE Renal: NONE Musculoskeletal: NONE Psychiatric: anxiety Endocrine: NONE Blood Disorders: NONE Cancer(s): NONE SIGHT EFFECTS SPECIALIST/Reproductive: NONE Surgical History Surgical History: non-contributory Psychosocial History ETOH Use: denies use Illicit Drug Use: denies illicit drug use Exam & Diagnostic Data Vital Signs and I&O Vital Signs Date Time Temp Pulse Resp B/P B/P Pulse O2 O2 Flow FiO2 Mean Ox Delivery Rate 08/06 1901 64 18 160/76 100 Room Air 08/06 1858 64 18 160/76 08/06 1631 74 18 190/80 100 Room Air 08/06 1603 98.9 88 20 180/86 99 Room Air 08/06 1437 98.7 66 18 185/74 98 08/06 1102 98.1 81 18 176/75 99 Room Air Room Air Intake & Output 08/06 1600 08/06 0800 08/06 0000 08/05 1600 08/05 0800 08/05 0000 Intake Total Output Total Balance Patient 107 lb Weight Weight Reported by Patient Measurement Method Physical Exam: General: WD/WN female in NAD; alert and oriented x 3 HEENT: NC/AT, PERRL, EOMI Neck: no JVD, left carotid bruit Heart: RRR with 2/6 systolic murmur Lungs: clear bilaterally Abdomen: soft, NT, +ve bowel sounds Extremities: no edema Assessment/Plan Assessment/Plan * This patient has symptoms and positive troponin consistent with a NSTEMI. Begin anticaogulation with aspirin, Plavix and IV heparin. Begin NTG paste 1/2 inch Q 6 hours and continue her statin. * This patient is hypertensive. Continue current dose of Atenolol and increase ACEI as necessary to control blood pressure. * Obtain an echocardiogram. * Follow cardiac enzymes until they peak. Consult Acknowledgment - Thank you for your consult request.
[2017-08-06 23:34] LABS: PTT > 120 SEC (25-37)
[2017-08-07 06:00] VITALS: BP 144/72
--- NOTE | 2017-08-07 08:10 | PN- Housestaff ---
Earline STRATTON,Yulissa 08/07/17 0810: Subjective Follow-up For: elevated troponins Complaints: no complaints Tele-Events Since Last Visit: NSR Subjective: Patient was seen and examined at bedside. No overnight events. Offers no complaints. She denies chest pain, chest pressure, palpitations, shortness of breath, fever, headache, altered sensation. Review of Systems Constitutional: Reports: no symptoms. Cardiovascular: Reports: no symptoms. Respiratory: Reports: no symptoms. Gastrointestinal: Reports: no symptoms. Genitourinary: Reports: no symptoms. Musculoskeletal: Reports: no symptoms. Objective Last 24 Hrs of Vital Signs/I&O Vital Signs Date Time Temp Pulse Resp B/P B/P Pulse O2 O2 Flow FiO2 Mean Ox Delivery Rate 08/07 0600 98.0 56 18 144/72 98 08/06 1901 64 18 160/76 100 Room Air 08/06 1858 64 18 160/76 08/06 1631 74 18 190/80 100 Room Air 08/06 1603 98.9 88 20 180/86 99 Room Air 08/06 1437 98.7 66 18 185/74 98 Intake & Output 08/07 1600 08/07 0800 08/07 0000 Intake Total 56 70 Output Total 150 Balance 56 -80 Intake, IV 56 70 Intake, Oral 0 Number 0 Bowel Movements Output, Urine 150 Patient 107 lb Weight Weight Reported by Patient Measurement Method Physical Exam General Appearance: Alert, Oriented X3, Cooperative, No Acute Distress HEENT: PERRLA Cardiovascular: Regular Rate, Normal S1, Normal S2 Lungs: Clear to Auscultation Abdomen: Normal Bowel Sounds, Soft, No Tenderness, No Hepatospenomegaly Neurological: Normal Speech, Strength at 5/5 X4 Ext, Normal Tone Extremities: No Edema, Normal Pulses Current Medications: Current Medications Sig/Emmy Start time Last Medication Dose Route Stop Time Status Admin Acetaminophen 500 MG Q6P PRN 08/06 2029 AC PO Acetaminophen 500 MG Q6P PRN 08/06 2030 AC PO Aspirin 0 .STK-MED ONE 08/06 1617 DC PO Aspirin 325 MG ONCE ONE 08/06 1545 DC 08/06 PO 08/06 1546 1618 Aspirin Buffered 81 MG DAILY 08/07 1000 AC 08/07 PO 0821 Atenolol 25 MG DAILY 08/07 1000 AC 08/07 PO 0822 Atorvastatin Calcium 80 MG 1700 08/07 1700 DC PO Atorvastatin Calcium 40 MG 1700 08/07 1700 AC PO Clonazepam 0.25 MG TIDPRN 08/07 1815 AC 08/07 PO 08/14 0959 0821 Clonazepam 0 .STK-MED ONE 08/06 1832 DC PO Clopidogrel Bisulfate 75 MG DAILY 08/07 1000 AC 08/07 PO 0822 Clopidogrel Bisulfate 0 .STK-MED ONE 08/06 1852 DC PO Clopidogrel Bisulfate 300 MG ONCE ONE 08/06 1830 DC 08/06 PO 08/06 1831 1858 Heparin Sodium 1,455 UNIT ONE ONE 08/07 1000 DC 08/07 (Porcine) IV 08/07 1001 1115 Heparin Sodium 0 .STK-MED ONE 08/06 1729 DC (Porcine) .ROUTE Heparin Sodium 4,000 UNIT ONCE ONE 08/06 1545 DC 08/06 (Porcine) IV 08/06 1546 1735 Heparin Sodium 25,000 UNIT Q24H 08/06 1545 AC 08/06 (Porcine) IV 1735 Sodium Chloride 500 ML Lisinopril 0 .STK-MED ONE 08/06 1829 DC PO Lisinopril 10 MG DAILY 08/06 1808 AC 08/07 PO 0822 Metoprolol Tartrate 12.5 MG BID 08/06 2200 CAN PO Nitroglycerin 0.5 GM Q6 PRN 08/06 2245 AC TOP Tramadol HCl 50 MG .STK-MED ONE 08/06 2208 DC PO 08/06 220 Last 24 Hrs of Lab/Krishna Results Last 24 Hrs of Labs/Mics: Laboratory Tests 08/07/17 0630: Anion Gap 12, Estimated GFR > 60, BUN/Creatinine Ratio 23.8, APTT 52 H, CBC w Diff NO MAN DIFF REQ, RBC 3.82 L, MCV 87.3, MCH 29.4, MCHC 33.7, RDW 12.7, MPV 8.3, Gran % 68.6, Lymphocytes % 19.2 L, Monocytes % 9.8 H, Eosinophils % 1.6, Basophils % 0.8, Absolute Granulocytes 3.8, Absolute Lymphocytes 1.1 L, Absolute Monocytes 0.5, Absolute Eosinophils 0.1, Absolute Basophils 0 08/06/17 2255: Troponin I 0.12 *H, APTT > 120 *H 08/06/17 1609: Troponin I 0.16 *H 08/06/17 1440: Troponin I 0.16 *H Assessment/Plan Assessment: Patient is 72 y/o F presented with chief complaint of chest discomfort, left shoulder pain PMH of HTN, HLP, anxiety presented with chief complaint of "not feeling good" Imagings at admission: * CXR: Small metallic foreign body seen on the prior chest x-ray today is not on this exam consistent with artifact. No acute change of chest. * Head CT: 1. There are no acute bleeds or territorial infarcts. No masses are demonstrated. 2. There is no mastoid air cell or paranasal sinus opacification. Patient was admitted to telemetry floor for management of following conditions: Chest pain/NSTEMI Patient has several risk factors for CAD including HTN and HLP, as well as initial troponins were high. The increased troponin can be secondary due to demand ischemia or associated with her anxiety. She will be followed up by cardiology today. She is nothing by mouth for possible. Continue heparin. - f/o i/o, vitals - serial Tn and EKG - statin and asprin and plavix, loading and continue with daily dose - follow cardiology - Keep patient nothing by mouth except meds - if chest pain or change in EKG/Tn inform cardiology for possible cardiac cath - Echo in AM Chronic medical condition: HTN, HLP, anxiety we will continue home medications so atenolol, lisinopril -Clonazepam 0.25, 3 times a day FC Nothing by mouth for now pending possible cardiac cath DVT. PPX, IV heparin Plan-cardiology follow-up. Problem List: 1. Anxiety 2. Non-STEMI (non-ST elevated myocardial infarction) Pain Ratin Pain Location: none Pain Goal: Remain pain free Pain Plan: tylenol Tomorrow's Labs & Rationales: cbc,bep Kat STRATTON,B 08/08/17 0816: Attending MD Review Statement Attending Statement Attending MD Statement: examined this patient (pt seen and examined on 08/07), discuss w/resident/PA/TAPE RULES PRINTING MACHINE OPERATOR, agreed w/resident/PA/TAPE RULES PRINTING MACHINE OPERATOR, discussed with family, discussed with nursing Attending Assessment/Plan: 72 y/o F presented with left arm tingling and palpitations. labs s/f trop elevation. cardiology on board with the concern of NSTEMI. C/w asa, heparin gtt. follow cardiology recs.
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
[2017-08-07 08:44] LABS: ABSOLUTE BASOPHIL COUNT 0 /CUMM (0.0-0.2); ABSOLUTE EOSINOPHIL COUNT 0.1 /CUMM (0.0-0.7); ABSOLUTE GRANULOCYTE CT 3.8 /CUMM (1.4-6.5); ABSOLUTE LYMPH COUNT 1.1 /CUMM (1.2-3.4); ABSOLUTE MONOCYTE COUNT 0.5 /CUMM (0.10-0.60); BASOPHIL % 0.8 % (0.0-2.0); EOSINOPHIL % 1.6 % (0-5); GRANULOCYTE % 68.6 % (42.2-75.2); HEMATOCRIT 33.4 % (37-47); MEAN CORPUSCULAR HGB 29.4 PG (27.0-31.0); MEAN CORPUSCULAR HGB CONC 33.7 G/DL (33.0-37.0); MEAN CORPUSCULAR VOLUME 87.3 FL (81.0-99.0); MEAN PLATELET VOLUME 8.3 FL (7.4-10.4); PLATELET COUNT 166 /CUMM (130-400); RBC DISTRIBUTION WIDTH 12.7 % (11.5-14.5); RED BLOOD CELL CT 3.82 /CUMM (4.20-5.40); WHITE BLOOD CELL COUNT 5.6 /CUMM (4.8-10.8)
[2017-08-07 09:09] LABS: PTT 52 SEC (25-37)
--- NOTE | 2017-08-07 14:15 | PN- Cardiology ---
Subjective Subjective: * No chest pain or shortness of breath * cardiac enzymes are trending down * sinus rhythm Objective Vital Signs and I&Os Vital Signs Date Time Temp Pulse Resp B/P B/P Pulse O2 O2 Flow FiO2 Mean Ox Delivery Rate 08/07 06 98.0 56 18 144/72 98 08/06 1901 64 18 160/76 100 Room Air 08/06 1858 64 18 160/76 08/06 1631 74 18 190/80 100 Room Air 08/06 1603 98.9 88 20 180/86 99 Room Air 08/06 1437 98.7 66 18 185/74 98 Intake & Output 08/07 1600 08/07 0800 08/07 0000 08/06 1600 08/06 0800 08/06 0000 Intake Total 56 70 Output Total 150 Balance 56 -80 Intake, IV 56 70 Intake, Oral 0 Number 0 Bowel Movements Output, Urine 150 Patient 107 lb 107 lb Weight Weight Reported by Patient Reported by Patient Measurement Method Physical Exam: General: WD/WN female in NAD; alert and oriented x 3 HEENT: NC/AT, PERRL, EOMI Neck: no JVD, left carotid bruit Heart: RRR with 2/6 systolic murmur Lungs: clear bilaterally Abdomen: soft, NT, +ve bowel sounds Extremities: no edema Assessment/Plan Assessment/Plan * This patient has symptoms and positive troponin consistent with a NSTEMI. Continue anticaogulation with aspirin, Plavix and IV heparin. Begin NTG paste 1/ 2 inch Q 6 hours and continue her statin. * This patient is hypertensive. Continue current dose of Atenolol and increase Lisinopril to 40mg daily. * Obtain an echocardiogram. Continue telemetry? Yes
[2017-08-07 14:41] VITALS: BP 142/70
[2017-08-07 18:12] LABS: PTT 59 SEC (25-37)
[2017-08-07 23:33] VITALS: BP 150/72
[2017-08-08 05:41] VITALS: BP 157/68
[2017-08-08 05:44] LABS: ABSOLUTE BASOPHIL COUNT 0 /CUMM (0.0-0.2); ABSOLUTE EOSINOPHIL COUNT 0.1 /CUMM (0.0-0.7); ABSOLUTE LYMPH COUNT 1.3 /CUMM (1.2-3.4); ABSOLUTE MONOCYTE COUNT 0.6 /CUMM (0.10-0.60); BASOPHIL % 0.8 % (0.0-2.0); EOSINOPHIL % 2.6 % (0-5); GRANULOCYTE % 59.4 % (42.2-75.2); HEMATOCRIT 37.2 % (37-47); MEAN CORPUSCULAR HGB 29.3 PG (27.0-31.0); MEAN CORPUSCULAR HGB CONC 33.4 G/DL (33.0-37.0); MEAN CORPUSCULAR VOLUME 87.8 FL (81.0-99.0); PLATELET COUNT 173 /CUMM (130-400); RED BLOOD CELL CT 4.24 /CUMM (4.20-5.40); WHITE BLOOD CELL COUNT 5.1 /CUMM (4.8-10.8)
[2017-08-08 05:53] LABS: PTT 89 SEC (25-37)
--- NOTE | 2017-08-08 08:50 | PN- Housestaff ---
James Laurent 08/08/17 0849: Subjective Follow-up For: + troponins Tele-Events Since Last Visit: NSR 60-70 Subjective: I have seen and examined the patient. Patient appetite is better today. Patient doesn't have any chest pain today. Review of Systems Constitutional: Reports: see HPI. Objective Last 24 Hrs of Vital Signs/I&O Vital Signs Date Time Temp Pulse Resp B/P B/P Pulse O2 O2 Flow FiO2 Mean Ox Delivery Rate 08/08 826 77 152/60 08/08 826 78 152/60 08/08 0541 98.5 70 20 157/68 99 08/07 2333 98.7 71 20 150/72 97 08/07 1441 98.8 60 20 142/70 98 Room Air Intake & Output 08/08 1600 08/08 0800 08/08 0000 Intake Total 212 212 Output Total 200 Balance 12 212 Intake, IV 92 92 Intake, Oral 120 120 Output, Urine 200 Physical Exam General Appearance: Alert, Oriented X3, Cooperative, No Acute Distress Cardiovascular: Regular Rate, Normal S1, Normal S2 Lungs: Clear to Auscultation, Normal Air Movement Abdomen: Normal Bowel Sounds, Soft, No Tenderness Extremities: No Clubbing, No Cyanosis, No Edema Assessment/Plan Assessment: Patient is 72 y/o F presented with chief complaint of chest discomfort, left shoulder pain PMH of HTN, HLP, anxiety presented with chief complaint of "not feeling good" Imagings at admission: * CXR: Small metallic foreign body seen on the prior chest x-ray today is not on this exam consistent with artifact. No acute change of chest. * Head CT: 1. There are no acute bleeds or territorial infarcts. No masses are demonstrated. 2. There is no mastoid air cell or paranasal sinus opacification. Patient was admitted to telemetry floor for management of following conditions: Chest pain/NSTEMI Patient has several risk factors for CAD including HTN and HLP, as well as initial troponins were high. The increased troponin can be secondary due to demand ischemia or associated with her anxiety. She will be followed up by cardiology today. She is nothing by mouth for possible. Continue heparin. - f/o i/o, vitals - serial Tn and EKG : trended down - statin and asprin and plavix, loading and continue with daily dose - follow cardiology/ possible cath in week - if chest pain or change in EKG/Tn inform cardiology for possible cardiac cath - Echo pending Chronic medical condition: HTN, HLP, anxiety we will continue home medications so atenolol, lisinopril -Clonazepam 0.25, 3 times a day FC heart healthy diet DVT. PPX, IV heparin Problem List: 1. Anxiety 2. Non-STEMI (non-ST elevated myocardial infarction) Pain Ratin Pain Location: no pain Pain Goal: Pain 4 or less Pain Plan: same Tomorrow's Labs & Rationales: liliane Stephens MD,B 08/08/17 1026: Attending MD Review Statement Attending Statement Attending MD Statement: examined this patient, discuss w/resident/PA/CONSERVATION TECHNICIAN, agreed w/resident/PA/CONSERVATION TECHNICIAN Attending Assessment/Plan: 72 y/o F presented with left arm tingling and palpitations. labs s/f trop elevation plateued at 0.16. cardiology on board with the concern of NSTEMI. C/w asa, heparin gtt. plan for echo in am. follow cardiology recs in regards to cath.
--- NOTE | 2017-08-08 13:06 | ECHOCARDIOGRAM REPORT ---
PAIGE WRIGHT Age: 72 : 1945 Gender: F Exam Date: 08/08/2017 11:25 Exam Location: [address] Ht (in): 64 Wt (lb): 107 BSA: 1.47 BP: 157 / 60 Ordering Physician: Mark Piper MD Referring Physician: Jhon Moy MD, PhD Technologist: Laila Ross [facility] Room Number: [id number] Indications: CHEST PAIN Rhythm: Sinus Technical Quality: fair FINDINGS Left Ventricle Normal left ventricular size, wall thickness and systolic function with no obvious regional wall motion abnormalities. Normal left ventricular diastolic filling pattern for age. The ejection fraction is visually estimated at 60%. Right Ventricle The right ventricle is normal in size and function. Right Atrium The right atrium is normal in size. Left Atrium The left atrium is normal in size. The interatrial septum is intact. Mitral Valve The mitral valve demonstrates mild annular calcification with normal function. There is trace mitral regurgitation. Aortic Valve Midly thickened aortic valve without significant sclerosis or stenosis. There is trace to mild aortic regurgitation. Tricuspid Valve The tricuspid valve is normal in structure and function. There is trace tricuspid regurgitation. Pulmonary artery systolic pressure is normal. Pulmonic Valve Structurally normal pulmonic valve. There is no pulmonic regurgitation. Pericardium Normal pericardium without effusion. No pleural effusion. Great Vessels Normal aortic root dimension. The aortic arch and great vessels are well seen and are normal. CONCLUSIONS 1. Normal EF of 60%. 2. Trace mitral regurgitation. 3. Trace tricuspid regurgitation. 4. Trace to mild aortic regurgitation. Jhon Moy M.D. (Electronically Signed) Final Date: 08 August 2017 13:05 MEASUREMENTS (Male / Female) Normal Values 2D ECHO LV Diastolic Diameter PLAX 4.2 cm 4.2 - 5.9 / 3.9 - 5.3 cm LV Systolic Diameter PLAX 2.5 cm 2.1 - 4.0 cm LV Fractional Shortening PLAX 40.5 % 25 - 46 % LV Ejection Fraction 2D Teich 71.6 % IVS Diastolic Thickness 0.9 cm LVPW Diastolic Thickness 1.0 cm LV Relative Wall Thickness 0.5 RV Internal Dim ED PLAX 2.4 cm 1.9 - 3.8 cm LVOT Diameter 1.9 cm Aortic Root Diameter 2.5 cm LA Systolic Diameter LX 2.1 cm 3.0 - 4.0 / 2.7 - 3.8 cm LA Volume 22.0 cm 18 - 58 / 22 - 52 cm DOPPLER AV Peak Velocity 193.0 cm/s AV Peak Gradient 14.9 mmHg AV Mean Velocity 136.0 cm/s AV Mean Gradient 8.0 mmHg AV Velocity Time Integral 44.1 cm LVOT Peak Velocity 135.0 cm/s LVOT Peak Gradient 7.3 mmHg LVOT Mean Velocity 91.4 cm/s LVOT Mean Gradient 4.0 mmHg LVOT Velocity Time Integral 31.4 cm LVOT Stroke Volume 89.0 cm AV Area Cont Eq vti 2.0 cm AV Area Cont Eq pk 2.0 cm MV Peak Velocity 128.0 cm/s MV Peak Gradient 6.6 mmHg MV Mean Velocity 83.2 cm/s MV Mean Gradient 3.0 mmHg Mitral E Point Velocity 105.0 cm/s Mitral A Point Velocity 89.3 cm/s Mitral E to A Ratio 1.2 MV PHT Velocity 126.0 cm/s MV Deceleration [place] 716.0 cm/s MV Pressure Half Time 52.8 ms MV Area PHT 4.2 cm MV Deceleration Time 243.0 ms TR Peak Velocity 311.0 cm/s TR Peak Gradient 38.7 mmHg Right Atrial Pressure 5.0 mmHg Pulmonary Artery Systolic Pressu 43.7 mmHg Right Ventricular Systolic Press 43.7 mmHg PV Peak Velocity 230.0 cm/s PV Peak Gradient 21.2 mmHg PV Mean Velocity 158.0 cm/s PV Mean Gradient 12.0 mmHg PV Velocity Time Integral 54.1 cm LV E' Lateral Velocity 6.8 cm/s Mitral E to LV E' Lateral Ratio 15.4 LV E' Septal Velocity 4.2 cm/s Mitral E to LV E' Septal Ratio 25.1
[2017-08-08 16:01] VITALS: BP 138/66
--- NOTE | 2017-08-08 16:21 | PN- Cardiology ---
Subjective Subjective: * No chest discomfort or shortness of breath. * sinus rhythm Objective Vital Signs and I&Os Vital Signs Date Time Temp Pulse Resp B/P B/P Pulse O2 O2 Flow FiO2 Mean Ox Delivery Rate 08/08 1601 98.7 66 20 138/66 97 08/08 08 77 152/60 08/08 08 78 152/60 08/08 0541 98.5 70 20 157/68 99 08/07 2333 98.7 71 20 150/72 97 Intake & Output 08/08 0000 08/07 1600 08/07 0000 Intake Total 692 212 212 177 56 70 Output Total 750 200 150 Balance -58 12 212 177 56 -80 Intake, IV 92 92 92 57 56 70 Intake, Oral 600 120 120 120 0 Number 1 0 Bowel Movements Output, Urine 750 200 150 Patient 107 lb Weight Weight Reported by Patient Measurement Method Physical Exam: General: WD/WN female in NAD; alert and oriented x 3 HEENT: NC/AT, PERRL, EOMI Neck: no JVD, left carotid bruit Heart: RRR with 3/6 systolic murmur Lungs: clear bilaterally Abdomen: soft, NT, +ve bowel sounds Extremities: no edema Assessment/Plan Assessment/Plan * This patient has symptoms and positive troponin consistent with a NSTEMI. Continue anticaogulation with aspirin and Plavix. Stop Heparin. Change to a NTG patch at 0.4mg/hr for 12 hours daily. Continue her statin. * This patient is hypertensive. Continue current dose of Atenolol and increase Lisinopril to 40mg daily. * Will risk stratify with a pharmacologic stress test in the morning. Continue telemetry? Yes
[2017-08-08 18:39] LABS: PTT 77 SEC (25-37)
[2017-08-08 21:24] VITALS: BP 148/66
[2017-08-09 07:03] VITALS: BP 124/54
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
--- NOTE | 2017-08-09 08:30 | PN- Housestaff ---
Aron Ambrose MD,Ami 08/09/17 0830: Subjective Follow-up For: Type II NV Anxiety Tele-Events Since Last Visit: Sb first-degree block, heart rate 52-59, AK 0.26 Subjective: Patient visited today, was sitting at the bedside comfortably in no acute distress, was alert and oriented. She noted to be anxious today, she is nothing by mouth and planned to have a stress test later today. No fever or chills, no shortness of breathing, no chest pain, no other events. Psychology was consulted regarding anxiety. Patient accepted to use our cardiac/vascular sonographer service. Fly Setter consult was placed. Review of Systems Constitutional: Reports: see HPI. Objective Last 24 Hrs of Vital Signs/I&O Vital Signs Date Time Temp Pulse Resp B/P B/P Pulse O2 O2 Flow FiO2 Mean Ox Delivery Rate 08/09 0703 97.3 67 20 124/54 97 Room Air 08/08 2124 98.5 91 18 148/66 98 Room Air 08/08 2115 61 148/66 08/08 1601 98.7 66 20 138/66 97 Intake & Output 08/09 1600 08/09 0800 08/09 0000 Intake Total Output Total 900 Balance -900 Output, Urine 900 Physical Exam General Appearance: Alert, Oriented X3, Cooperative, No Acute Distress, THIN Skin: No Significant Lesion Skin Temp/Moisture Exam: Warm/Dry Sepsis Skin Exam (color): Normal for Ethnicity HEENT: Atraumatic, EOMI, Mucous Membr. moist/pink Cardiovascular: Regular Rate, Normal S1, Normal S2, bradycardic Lungs: Clear to Auscultation Abdomen: Soft, No Tenderness Neurological: Normal Speech, grossly normal no change compared to yesterday Extremities: No Edema Current Medications: Current Medications Sig/Emmy Start time Last Medication Dose Route Stop Time Status Admin Acetaminophen 500 MG Q6P PRN 08/06 2029 AC PO Acetaminophen 500 MG Q6P PRN 08/06 2030 AC PO Aspirin Buffered 81 MG DAILY 08/07 1000 AC 08/08 PO 08 Atenolol 25 MG DAILY 08/07 1000 AC 08/08 PO 08 Cholecalciferol 5,000 IU DAILY 08/08 1000 AC 08/08 PO 08 Clonazepam 0.25 MG TIDPRN 08/07 1815 AC 08/09 PO 08/14 0959 0920 Clopidogrel Bisulfate 75 MG DAILY 08/07 1000 AC 08/08 PO 0826 Dipyridamole 30 MG 1300 / 1300 AC Dextrose/Water 34 ML IV 08/09 1303 Heparin Sodium 25,000 UNIT Q24H 08/06 1545 DC 08/07 (Porcine) IV 1618 Sodium Chloride 500 ML Lisinopril 40 MG DAILY 08/09 1000 AC PO Lisinopril 30 MG ONE ONE 08/08 1715 DC 08/08 PO 08/08 1716 2115 Lisinopril 10 MG DAILY 08/06 1808 DC 08/08 PO 0827 Nitroglycerin 0.5 GM Q12 08/08 2200 CAN TOP Nitroglycerin 0.4 MG DAILY@1800 08/08 1812 AC 08/08 TOP 2105 Nitroglycerin 0.5 GM Q6 PRN 08/06 2245 DC TOP Simvastatin 40 MG 1700 08/08 1700 AC 08/08 PO 1559 Last 24 Hrs of Lab/Krishna Results Last 24 Hrs of Labs/Mics: Laboratory Tests 08/09/17 0700: Anion Gap 12, Estimated GFR > 60, BUN/Creatinine Ratio 20.0 08/08/17 1800: APTT 77 H Assessment/Plan Assessment: Patient is 72 y/o F presented with chief complaint of chest discomfort, left shoulder pain PMH of HTN, HLP, anxiety presented with chief complaint of "not feeling good" Imagings at admission: * CXR: Small metallic foreign body seen on the prior chest x-ray today is not on this exam consistent with artifact. No acute change of chest. * Head CT: 1. There are no acute bleeds or territorial infarcts. No masses are demonstrated. 2. There is no mastoid air cell or paranasal sinus opacification. Patient was admitted to telemetry floor for management of following conditions: Chest pain/NSTEMI Patient has several risk factors for CAD including HTN and HLP, as well as initial troponins were high. The increased troponin can be secondary due to demand ischemia or associated with her anxiety. serial Tn and EKG were trended down to rule out ACS requiring catheterization. Echo: 1. Normal EF of 60%. 2. Trace mitral regurgitation. 3. Trace tricuspid regurgitation. 4. Trace to mild aortic regurgitation. - f/o i/o, vitals - cont asprin and plavix, loading and continued with daily dose - follow cardiology/ possible cath in week - if chest pain or change in EKG/Tn inform cardiology for possible cardiac cath - Follow stress test later today Chronic medical condition: HTN, HLP, anxiety we will continue home medications so atenolol, lisinopril -Clonazepam 0.25, 3 times a day -Psychology consult -Gina consult FC heart healthy diet DVT. PPX, IV heparin Problem List: 1. Non-STEMI (non-ST elevated myocardial infarction) 2. Anxiety Pain Ratin Pain Location: None Pain Goal: Pain 4 or less Pain Plan: Continue current plan Tomorrow's Labs & Rationales: Ramon Castillo MD 08/09/17 6017: Attending MD Review Statement Attending Statement Attending MD Statement: examined this patient, discuss w/resident/PA/OR ASSISTANT, agreed w/resident/PA/OR ASSISTANT, reviewed EMR data (avail), discussed with nursing, discussed with case mgmt, reviewed images, amended to note Attending Assessment/Plan: The patient was seen and discussed with house staff. Agree with plan of care as outlined. S/P Dipyridamole stress test today. Myoview images are negative for ischemia. Await cardiology input.
[2017-08-09 15:16] VITALS: BP 140/70
--- NOTE | 2017-08-09 18:02 | NUCLEAR MEDICINE REPORT ---
PERSANTINE STRESS AND RESTING SPECT MYOCARDIAL PERFUSION IMAGING STUDY WITH GATED SPECT IMAGES: CLINICAL INDICATION: Chest pain, hypertension. PROCEDURE: Regional myocardial perfusion was assessed using a 1 day protocol. Stress images were obtained on 08/09/2017 following the intravenous administration of 13.0 mCi Tc 99m Myoview. Stress consisted of 30 mg Persantine given intravenously. Following the sestamibi injection, no aminophylline was given intravenously. Rest images were obtained 08/09/2017 following the intravenous administration of 16.7 mCi Technetium 99m Myoview. Single photon emission tomographic (SPECT) images were obtained. SPECT images were acquired in a 64 x 64 matrix of 64 projections over 180 degrees. These were reconstructed into standard short axis, horizontal and vertical long axis cardiac projections. FINDINGS: The post stress images demonstrate the left ventricular chamber to be normal in size. There is homogeneous distribution of activity in the left ventricular myocardium with no regions of abnormally decreased activity noted. The resting images also demonstrate homogeneous distribution of activity in the left ventricular myocardium, and are not significantly changed from the post stress images. The images were obtained using a gated SPECT technique, which permits visualization of wall motion and calculation of the left ventricular ejection fraction. No left ventricular wall motion abnormalities are noted on either the stress or resting study. The calculated left ventricular ejection fraction is 87% on the stress study. Compared to the previous study dated 06/08/2006, there has not been a significant change in perfusion. Gated images from the previous study are not available and the wall motion cannot be compared. IMPRESSION: Normal Persantine stress and resting myocardial perfusion study with normal left ventricular wall motion and ejection fraction.
--- NOTE | 2017-08-09 18:13 | PN- Cardiology ---
Subjective Subjective: * No chest discomfort or shortness of breath. * sinus rhythm * BP is improved * no ischemia on stress test Objective Vital Signs and I&Os Vital Signs Date Time Temp Pulse Resp B/P B/P Pulse O2 O2 Flow FiO2 Mean Ox Delivery Rate 08/09 1516 97.9 95 20 140/70 97 08/09 1451 98.7 80 16 124/86 02 1447 98.7 80 18 124/86 08/09 0703 97.3 67 20 124/54 97 Room Air 08/08 2124 98.5 91 18 148/66 98 Room Air 08/08 2115 61 148/66 Intake & Output 08/09 1600 08/09 0800 08/09 0000 08/08 1600 08/08 0800 08/08 0000 Intake Total 692 212 212 Output Total 900 750 200 Balance -900 -58 12 212 Intake, IV 92 92 92 Intake, Oral 600 120 120 Output, Urine 900 750 200 Physical Exam: General: WD/WN female in NAD; alert and oriented x 3 HEENT: NC/AT, PERRL, EOMI Neck: no JVD, left carotid bruit Heart: RRR with 2/6 systolic murmur Lungs: clear bilaterally Abdomen: soft, NT, +ve bowel sounds Extremities: no edema Assessment/Plan Assessment/Plan * This patient had symptoms and positive troponin consistent with a NSTEMI. She is improved with medical therapy and her stress test is negative for ischemia. We will continue aspirin 325mg daily, Plavix 75mg daily, NTG patch 0.4mg/hr for 12 hours daily, Lisinopril 40mg daily, Atenolol and Simvastatin as currently prescribed. This patient can be discharged in the morning on the above medications with follow up in the office in one week. Continue telemetry? Yes
--- NOTE | 2017-08-09 19:51 | Cons- Psychiatry ---
Psychiatric Consult Date of Consult: 08/09/17 Reason for Consult: "Anxiety. Patient has anxiety, followed with outpatient, recent episode type 2 [place]" History of Present Illness: 72 , female, BIBA from home with chief complaint "don't feel right," and upper back pain, panic attack with unusual symptoms. She was admitted for an NSTEMI. The patient is a current patient of [facility] and is followed by Dr. Rodrigo Webber. Her current medication is clonazepam 0.25 mg PO at bedtime. The patient lives at home with her son who has a psychotic disorder. She is very stressed by this care, as the son can become verbally aggressive, especially in the afternoon. She has 5 children, including another son, Alfonso, and a daughter, who were present and supportive today. Her children's father, Nestor, at age 52; they were while she was in her thirties, due to threat of physical violence. Her second , Elieser, 5 years ago this coming November. She talks to her lens generating machine tender about her feelings, and had been involved with the bereavement group at . she had been in tratment with Dr. Duran, and is interested in rejoining a talk therapy program. Allergies: Coded Allergies: Penicillins (ANAPHYLAXIS - TONGUE SWELLED - HOSPITALIZATION 10/07/15) clarithromycin (MOUTH AND THROAT BURNING - HOSPITALIZATION 10/07/15) propoxyphene (FELT WEIRD AND FELT IN ANOTHER WORLD PER PT 10/07/15) tetracycline (UNKNOWN PER PT 10/07/15) Current Medications: Current Medications Sig/Emmy Start time Last Medication Dose Route Stop Time Status Admin Acetaminophen 500 MG Q6P PRN 08/06 2030 AC PO Acetaminophen 500 MG Q6P PRN 08/06 2030 AC PO Aspirin Buffered 81 MG DAILY 08/07 1000 AC 08/09 PO 1448 Atenolol 25 MG DAILY 08/07 1000 AC 08/09 PO 1447 Cholecalciferol 5,000 IU DAILY 08/08 1000 AC 08/09 PO 1446 Clonazepam 0.25 MG TIDPRN 08/07 1815 AC 08/09 PO 08/14 0959 0920 Clopidogrel Bisulfate 75 MG DAILY 08/07 1000 AC 08/09 PO 1448 Dipyridamole 30 MG 1300 08/09 1300 DC Dextrose/Water 34 ML IV 08/09 1303 Lisinopril 40 MG DAILY 08/09 1000 AC 08/09 PO 1451 Nitroglycerin 0.4 MG DAILY@1800 08/08 1812 AC 08/09 TOP 1755 Simvastatin 40 MG 1700 08/08 1700 AC 08/09 PO 1754 Past History Past Medical History Neurological: NONE EENT: NONE Cardiovascular: hypertension, hyperlipidemia Respiratory: NONE Gastrointestinal: NONE Hepatic: NONE Renal: NONE Musculoskeletal: NONE Psychiatric: anxiety Endocrine: NONE Blood Disorders: NONE Cancer(s): NONE BABY ATTENDANT/Reproductive: NONE Past Surgical History Surgical History: non-contributory Psychosocial History Strengths/Capabilities: Supportive son, Alfonso, and daughter. Physical Limitations (Interventions): None Psychiatric Treatment History Psych Treatment Psychiatric Treatment Yes Inpatient Treatment No Outpatient Treatment Yes Location of Treatment [facility] Reason for Treatment Anxiety Dates of Treatment Currently in treatment Response to Treatment Improved Diagnosis: Anxiety Risk Factors: age (under 24/over 65), high anxiety/distress Substance Use/Abuse History Drug Use/Abuse Substances Used/Abused No Substance Abuse Treatment Substance Abuse Treatment Past Substance Abuse [place] No Assessment/Plan Mental Status Orientation: Person, Place, Situation Affect: WNL Speech: WNL Neuro-vegetative: Sleep Disturbance Mental Status Exam: Alert and oriented. Denies AH or VH< and presents no lillaina delusions. She denies SI or HI. Denies hopelessness, worthlessness, and endorses some helplessness and guilt feelings (Secondary to her sone, not Alfonso, being born with his mental illness.) She sleeps 6-7 hours per night, and is not always rested. She denies any substance or alcohol use. Lab Results: Laboratory Tests 08/09 0700 Chemistry Sodium (137 - 145 mmol/L) 145 Potassium (3.5 - 5.1 mmol/L) 4.0 Chloride (98 - 107 mmol/L) 108 H Carbon Dioxide (22 - 30 mmol/L) 26 Anion Gap (5 - 16) 12 BUN (7 - 17 mg/dL) 18 H Creatinine (0.5 - 1.0 mg/dL) 0.9 Estimated GFR (>60 ml/min) > 60 BUN/Creatinine Ratio (7 - 25 %) 20.0 Diffential Diagnosis: Generalized anxiety disorder F41.1 Panic disorder F41.0 Impression: The patient has previously refused to consider a first-line medication for her anxiety, such as an SSRI. She indicated a willingness to continue the discussion of resuming talk therapy and starting a Lexipro for anxiety and panic. Sertraline might be a better choice, but at the moment, she is in opposition, due to friend's reports about this medication. If any medication is started, it should probably be started at the lowest possible dose. Her daughter and her son, Alfonso, will encourage her to try what her physician recommends. The patient has been on a low dose of clonazepam through her psychiatrist, Dr. Webber at [facility]. Please taper this medication to pre-hospital dosing, if possible. Our plan would be to encourage her to start an SSRI, such as sertraline/Zoloft or escitalopram/Lexapro. At the moment, she does not wish to start another medication, and is feeling overwhelmed by the events leading to this admission. We recommend starting an SSRI while she is in the hospital, but we would like comment on her treating tire finisher, as these medications can prolong QTc and cause or worsen hyponatremia. Provisional Treatment Plan: 1. Taper clonazepam to 0.25 mg PO daily, as needed, for anxiety. 2. We may have a recommendation to start an SSRI later, but she is reporting feeling overwhelmed at this time. Please ask cardiology to comment on starting Lexapro or Zoloft. 3. Please advise on her discharge plan, as we would like to have her make an appointment to see Dr. Webber, psychiatrist, as soon after discharge as possible. We will continue to follow along with you. Thank you for this consult.
[2017-08-09 22:14] VITALS: BP 112/58
[2017-08-10 06:41] VITALS: BP 108/64
--- NOTE | 2017-08-10 09:01 | IV DIPYRIDAMOLE NUCLEAR STRESS ---
Clinical Diagnosis: Chest Pain, Hypertension Application Defense Manager: Radha Mcgraw IV DIPYRIDAMOLE INFUSED: 30 mg IV AMINOPHYLLINE INFUSED: 0 mg PATIENT WEIGHT: 107 lbs INTERPRETATION: The patient's baseline EKG showed normal sinus rhythm with abnormal R wave progression consistent with old anterior myocardial infarction and 0.[address] depression in leads 2, 3, aVF at 76 BPM. Baseline B/P 150/80. The patient received 30 mg of dipyridamole infused intravenously over a 4 minute period. TC99M Myoview was injected after dipyridamole infusion. The patient complained of chest pain and headache. [address] depression in leads 2, 3, aVF, and V3-V6 following pharmacologic infusion. Arrhythmias: Rare blocked premature atrial contraction. IMPRESSION: The test was supervised by the interpreting Chin Strap Sewer, who was in attendance during the entire test. There were positive EKG changes suggestive of stress induced myocardial ischemia. See separately dictated Nuclear Report.
[2017-08-10 09:13] VITALS: BP 108/64
--- NOTE | 2017-08-10 09:48 | PN- Cardiology ---
Subjective Subjective: * No chest discomfort or shortness of breath. Non-exertional left shoulder discomfort is noted. * sinus rhythm * BP is improved * no ischemia on stress test Objective Vital Signs and I&Os Vital Signs Date Time Temp Pulse Resp B/P B/P Pulse O2 O2 Flow FiO2 Mean Ox Delivery Rate 08/10 0813 67 108/64 08/10 0913 67 108/64 08/10 0641 98.2 67 18 108/64 98 Room Air 08/09 2214 98.1 60 18 112/58 97 Room Air 08/09 1516 97.9 95 20 140/70 97 08/09 1451 98.7 80 16 124/86 08/09 1447 98.7 80 18 124/86 Intake & Output 08/10 1600 08/10 0800 08/10 0000 08/09 1600 08/09 0808/09 0000 Intake Total 360 Output Total 500 900 Balance -500 360 -900 Intake, Oral 360 Output, Urine 500 900 Physical Exam: General: WD/WN female in NAD; alert and oriented x 3 HEENT: NC/AT, PERRL, EOMI Neck: no JVD, left carotid bruit Heart: RRR with 2/6 systolic murmur Lungs: clear bilaterally Abdomen: soft, NT, +ve bowel sounds Extremities: no edema Assessment/Plan Assessment/Plan * This patient had symptoms and positive troponin consistent with a NSTEMI. She is improved with medical therapy and her stress test is negative for ischemia. We will continue aspirin 325mg daily, Plavix 75mg daily, NTG patch 0.4mg/hr for 12 hours daily, Lisinopril 20mg daily, Atenolol and Simvastatin as currently prescribed. This patient can be discharged in the morning on the above medications with follow up in the office in one week. Continue telemetry? Yes
[2017-08-10] MEDS ORDERED: LISINOPRIL20 M1 PO ×2 (10:38→11:35)
[2017-08-10] MEDS ORDERED: ASPIRIN325 M2 PO ×2 (10:38→11:35)
[2017-08-10] MEDS ORDERED: NITROGLYCERIN1 EACH TOP ×2 (10:38→11:35)
[2017-08-10] MEDS ORDERED: PLAVIX75 M1 PO ×2 (10:38→11:35)
--- NOTE | 2017-08-10 11:25 | Patient Discharge Instructions ---
Discharge Instructions General Discharge Information You were seen/treated for: Anxiety Non-ST elevation ND, demand ischemia Watch for these problems: Severe chest pain, palpitations, heart racing, shortness of breathing, anxiety, headache, or worsening of any other symptoms. Special Instructions: Please follow with your PCP within one week of discharge. Please follow with your psychiatrist within 1 week of discharge, please ask about starting SSRI. Please follow with your escrow clerk within 1 week of discharge. Please take your medications as ordered. Diet Continue normal diet: No Recommended Diet: Heart Healthy Activity Full Activity/No Limits: No Activity Self Limited: Yes Acute Coronary Syndrome Inclusion Criteria At DC or during hospital stay patient has or had the following: ACS DIAGNOSIS Yes Discharge Core Measures Meds if any: Prescribed or Continued at Discharge ROSMERY/ARB if EF <40% No (ordered) Aspirin Yes Beta-Ana Luisa Yes Statin Yes Meds if any: NOT Prescribed or Continued at Discharge Congestive Heart Failure Inclusion Criteria At DC or during hospital stay patient has or had the following: CHF DIAGNOSIS No Discharge Core Measures Meds if any: Prescribed or Continued at Discharge Meds if any: NOT Prescribed or Continued at Discharge Cerebrovascular accident Inclusion Criteria At DC or during hospital stay patient has or had the following: CVA/TIA Diagnosis No Discharge Core Measures Meds if any: Prescribed or Continued at Discharge Meds if any: NOT Prescribed or Continued at Discharge Venous thromboembolism Inclusion Criteria VTE Diagnosis No VTE Type NONE VTE Confirmed by (Test) NONE Discharge Core Measures - Per Current guidelines, there needs to be overlap - treatment for the first 5 days of Warfarin therapy. - If discharged on Warfarin prior to 5 days of - overlap therapy, the patient will need to be - assessed for post discharge needs including - *Post discharge parental anticoagulation - *Warfarin and/or parental anticoagulation education - *Follow up date to check INR post discharge At least 5 days overlap therapy as Inpatient No Meds if any: Prescribed or Continued at Discharge Note: Overlap Therapy is Warfarin and Anticoagulant Meds if any: NOT Prescribed or Continued at Discharge
--- NOTE | 2017-08-10 11:26 | Discharge Summary ---
Visit Information Visit Dates Admission Date: 08/06/17 Discharge Date: 08/10/17 Hospital Course Course Attending Physician: Ramno Mak MD Primary Care Physician: Allen Metcalf MD Hospital Course: Patient was 72 y/o F presented with chief complaint of chest discomfort, left shoulder pain, associated with anxiety PMH of HTN, HLP, anxiety Imagings at admission: * CXR: Small metallic foreign body seen on the prior chest x-ray today is not on this exam consistent with artifact. No acute change of chest. * Head CT: 1. There are no acute bleeds or territorial infarcts. No masses are demonstrated. 2. There is no mastoid air cell or paranasal sinus opacification. Patient was admitted to telemetry floor for management of following conditions: Chest pain/NSTEMI Patient had several risk factors for CAD including HTN and HLP, as well as initial troponins were high. The increased troponin can be secondary due to demand ischemia or associated with her anxiety. serial Tn and EKG were trended down to rule out ACS requiring catheterization. Echo: 1. Normal EF of 60%. 2. Trace mitral regurgitation. 3. Trace tricuspid regurgitation. 4. Trace to mild aortic regurgitation. Cardiac stress test was done: Normal Persantine stress and resting myocardial perfusion study with normal left ventricular wall motion and ejection fraction. Patient was stable to be discharged. We planned to continue asprin and plavix, as well as Nitro patch in outpatient. Patient was instructed to follow cardiology in outpatient. Lisinipril increased to 20mg. Chronic medical condition: HTN, HLP, anxiety we continued home medications so atenolol Clonazepam 0.25, 3 times a day was initially administered and was tapered to once a day later. FC heart healthy diet DVT. PPX, IV heparin With stabilization of the condition patient was discharged with instructions below Allergies: Coded Allergies: Penicillins (ANAPHYLAXIS - TONGUE SWELLED - HOSPITALIZATION 10/07/15) clarithromycin (MOUTH AND THROAT BURNING - HOSPITALIZATION 10/07/15) propoxyphene (FELT WEIRD AND FELT IN ANOTHER WORLD PER PT 10/07/15) tetracycline (UNKNOWN PER PT 10/07/15) Disposition Summary Disposition Principal Diagnosis: Non-STEMI Additional Diagnosis: Anxiety Discharge Disposition: home or self care Discharge Instructions General Discharge Information Code Status: Full Code Patient's Diet: heart healthy Patient's Activity: Self limted Follow-Up Instructions/Appts: Please follow with your PCP within one week of discharge. Please follow with your psychiatrist within 1 week of discharge, please ask about starting SSRI. Please follow with your conditioner tender within 1 week of discharge. Please take your medications as ordered. Medications at Discharge Discharge Medications: Stop taking the following medications: Aspirin (Ecotrin*) 81 MG TABLET.DR ORAL DAILY Lisinopril (Lisinopril) 10 MG TABLET ORAL DAILY Continue taking these medications: Atenolol (Atenolol) 25 MG TABLET 1 Tablet ORAL DAILY Comments: Last Taken: 08/10/17 Time: 0915 am Clonazepam (Klonopin) 0.5 MG TABLET 0.5 Tablet ORAL DAILY Comments: Last Taken: 08/10/17 Time: 0915 am Simvastatin (Zocor*) 40 MG TABLET 1 Tablet ORAL DAILY Comments: Last Taken: 08/10/17 Time: 550 pm Cholecalciferol (Vitamin D3) (Vitamin D) 5,000 UNIT TABLET 1 Tablet ORAL DAILY Comments: Last Taken: 08/10/17 Time: 0915 am Start taking the following new medications: Clopidogrel Bisulfate (Plavix) 75 MG TABLET 75 Milligram ORAL DAILY Qty = 30 No Refills Instructions: . Comments: Last Taken: 08/10/17 Time: 0915 am Nitroglycerin (Nitroglycerin Patch) 0.4 MG/HOUR PATCH.TD24 0.4 Milligram On the skin DAILY Qty = 30 No Refills Instructions: . Comments: Last Taken: 08/10/17 Time: 6 pm Lisinopril (Lisinopril) 20 MG TABLET 20 Milligram ORAL DAILY Qty = 30 No Refills Instructions: . Comments: Last Taken: 08/617 Time: 0915 am Aspirin (Aspirin*) 325 MG TABLET 325 Milligram ORAL DAILY Qty = 30 No Refills Instructions: . Comments: Last Taken: 08/10/17 Time: 0915 am Copies To: Akbar STRATTON,Rodrigo; Farzaneh STRATTON PHD,Jhon Rojo; Tea STRATTON,Allen Rojo Attending MD Review Statement Documenting Attending: Ramon Mak MD Other Findings: The patient was seen on the day of discharge and agree with the plan of care as outlined. Dipyridamole stress test was negative for ischemia. Plan is medical management at present and observed for any exertional symptoms. Will follow-up with Dr. Moy in 1 week and with PCP. She will also follow-up with her OP psychiatrist for anxiety and consider SSRI with taper of benzo as per psychiatry consult obtained as inpatient.
--- NOTE | 2017-08-10 11:50 | PN- Housestaff ---
See Addendum Subjective Follow-up For: Anxiety Increased BP Increased TN Tele-Events Since Last Visit: SR, SB, MT 56-60, 10 beat run Subjective: Patient visited today, was sitting at the bedside comfortably in no acute distress, was alert and oriented. Patient reported improved anxiety and reported no chest pain when walking. Had left shoulder pain at rest, pain relatively increased with motion and she was relating it to lying at that side. No fever or chills, no shortness of breathing, no other events. Heart a medication were updated, blood pressure was relatively low this morning (104 systolic) and we plan to discharge on a lower dose of lisinopril. We will continue other medication. Review of Systems Constitutional: Reports: see HPI. Objective Last 24 Hrs of Vital Signs/I&O Vital Signs Date Time Temp Pulse Resp B/P B/P Pulse O2 O2 Flow FiO2 Mean Ox Delivery Rate 08/10 912 67 108/64 08/10 0913 67 108/64 08/10 0641 98.2 67 18 108/64 98 Room Air 08/09 2214 98.1 60 18 112/58 97 Room Air 08/09 1516 97.9 95 20 140/70 97 / 1451 98.7 80 16 124/86 02/05 1447 98.7 80 18 124/86 Intake & Output 08/10 1600 08/10 0800 08/10 0000 Intake Total Output Total 500 Balance -500 Output, Urine 500 Physical Exam General Appearance: Alert, Oriented X3, Cooperative, No Acute Distress Skin: No Significant Lesion Skin Temp/Moisture Exam: Warm/Dry Sepsis Skin Exam (color): Normal for Ethnicity HEENT: Atraumatic, EOMI, Mucous Membr. moist/pink Cardiovascular: Regular Rate, Normal S1, Normal S2 Lungs: Clear to Auscultation Abdomen: Soft, No Tenderness Neurological: Normal Speech Extremities: No Edema Current Medications: Current Medications Sig/Emmy Start time Last Medication Dose Route Stop Time Status Admin Acetaminophen 500 MG Q6P PRN 08/06 2029 AC 08/10 PO 0746 Acetaminophen 500 MG Q6P PRN 08/06 2030 AC PO Aspirin 325 MG DAILY 08/10 1000 AC PO Aspirin Buffered 81 MG DAILY 08/07 1000 DC 08/10 PO 09 Atenolol 25 MG DAILY 08/07 1000 AC 08/10 PO 912 Cholecalciferol 5,000 IU DAILY 08/08 1000 AC / PO 0911 Clonazepam 0.25 MG TIDPRN 08/07 1815 AC 08/10 PO 08/14 0959 0917 Clopidogrel Bisulfate 75 MG DAILY 08/07 1000 AC 08/10 PO 0913 Lisinopril 20 MG DAILY 08/10 1000 AC PO Lisinopril 40 MG DAILY 08/09 1000 DC 08/10 PO 0913 Nitroglycerin 0.4 MG DAILY@1800 08/08 1812 AC 08/09 TOP 1755 Simvastatin 40 MG 1700 08/08 1700 AC 08/09 PO 1754 Last 24 Hrs of Lab/Krishna Results Last 24 Hrs of Labs/Mics: Laboratory Tests 08/10/17 0115: Anion Gap 12, Estimated GFR > 60, BUN/Creatinine Ratio 21.1, Magnesium 1.8 Assessment/Plan Assessment: Patient is 72 y/o F presented with chief complaint of chest discomfort, left shoulder pain PMH of HTN, HLP, anxiety presented with chief complaint of "not feeling good" Imagings at admission: * CXR: Small metallic foreign body seen on the prior chest x-ray today is not on this exam consistent with artifact. No acute change of chest. * Head CT: 1. There are no acute bleeds or territorial infarcts. No masses are demonstrated. 2. There is no mastoid air cell or paranasal sinus opacification. Patient was admitted to telemetry floor for management of following conditions: Chest pain/NSTEMI Patient has several risk factors for CAD including HTN and HLP, as well as initial troponins were high. The increased troponin can be secondary due to demand ischemia or associated with her anxiety. serial Tn and EKG were trended down to rule out ACS requiring catheterization. Echo: 1. Normal EF of 60%. 2. Trace mitral regurgitation. 3. Trace tricuspid regurgitation. 4. Trace to mild aortic regurgitation. Cardiac stress test was done yesterday: Normal Persantine stress and resting myocardial perfusion study with normal left ventricular wall motion and ejection fraction. Patient was stable to be discharged. We planned to continue asprin and plavix, as well as Nitro patch in outpatient. Patient was instructed to follow cardiology in outpatient. Lisinipril increased to 20mg. Chronic medical condition: HTN, HLP, anxiety we continued home medications so atenolol Clonazepam 0.25, 3 times a day was initially administered and was tapered to once a day later. FC heart healthy diet DVT. PPX, IV heparin With stabilization of the condition patient was discharged with instructions below: Please follow with your PCP within one week of discharge. Please follow with your psychiatrist within 1 week of discharge, please ask about starting SSRI. Please follow with your box person within 1 week of discharge. Please take your medications as ordered. Problem List: 1. Non-STEMI (non-ST elevated myocardial infarction) 2. Anxiety Pain Ratin Pain Location: None Pain Goal: Pain 4 or less Pain Plan: Continue current plan Tomorrow's Labs & Rationales: N/A
--- NOTE | 2017-08-10 11:52 | Discharge Summary ---
Hospital Course Allergies: Coded Allergies: Penicillins (ANAPHYLAXIS - TONGUE SWELLED - HOSPITALIZATION 10/07/15) clarithromycin (MOUTH AND THROAT BURNING - HOSPITALIZATION 10/07/15) propoxyphene (FELT WEIRD AND FELT IN ANOTHER WORLD PER PT 10/07/15) tetracycline (UNKNOWN PER PT 10/07/15) Discharge Instructions Medications at Discharge Discharge Medications: Stop taking the following medications: Aspirin (Ecotrin*) 81 MG TABLET.DR ORAL DAILY Lisinopril (Lisinopril) 10 MG TABLET ORAL DAILY Continue taking these medications: Atenolol (Atenolol) 25 MG TABLET 1 Tablet ORAL DAILY Clonazepam (Klonopin) 0.5 MG TABLET 0.5 Tablet ORAL DAILY Simvastatin (Zocor*) 40 MG TABLET 1 Tablet ORAL DAILY Cholecalciferol (Vitamin D3) (Vitamin D) 5,000 UNIT TABLET 1 Tablet ORAL DAILY Start taking the following new medications: Clopidogrel Bisulfate (Plavix) 75 MG TABLET 75 Milligram ORAL DAILY Qty = 30 No Refills Instructions: . Nitroglycerin (Nitroglycerin Patch) 0.4 MG/HOUR PATCH.TD24 0.4 Milligram On the skin DAILY Qty = 30 No Refills Instructions: . Lisinopril (Lisinopril) 20 MG TABLET 20 Milligram ORAL DAILY Qty = 30 No Refills Instructions: . Aspirin (Aspirin*) 325 MG TABLET 325 Milligram ORAL DAILY Qty = 30 No Refills Instructions: .
== END 2017-08-10 14:20 | DRG 282 ==
LOC: ERH 10:48 → 1NO 16:03 → ERHI 16:03 → CANBEDREQ 16:42 → ENRESERV 17:07 → ENTRNSPT 19:05 → CANRESERV 19:20 → ENRESERV 19:20 → 1NO 19:22 → CMPTRNSPT 19:23 → 1NO 19:23 → ENPENDDIS 08-10 11:35 → ENTRNSPT 08-10 14:01 → EDTRNSPT 08-10 14:15 → EDTRNSPTSTS 08-10 14:15 → CMPTRNSPT 08-10 14:18 → 1NO 08-10 14:20
PROVIDERS: Internal Medicine; Physician Assistant Medical; Radiology Vascular & Interventional Radiology; Student in an Organized Health Care Education/Training Program
DX: I21.4 Non-ST elevation (NSTEMI) myocardial infarction (principal); I36.1 Nonrheumatic tricuspid (valve) insufficiency; I34.0 Nonrheumatic mitral (valve) insufficiency; I35.1 Nonrheumatic aortic (valve) insufficiency; E78.5 Hyperlipidemia, unspecified; I10 Essential (primary) hypertension; F41.0 Panic disorder [episodic paroxysmal anxiety]; G89.29 Other chronic pain; M54.2 Cervicalgia; R01.1 Cardiac murmur, unspecified; I44.0 Atrioventricular block, first degree
CPT/HCPCS: 1NP; 36415; 71045; 78452; 82436; 93005; 93010; 93016; 93017; 93306; 96374; 99233; 99291; A9502; J1245; J1644

== ENCOUNTER 2017-08-18 10:49 | Emergency (ER) | payer OTHER ==
[~2017-08-18] VITALS: Ht 162.6 cm; Wt 45.4 kg
[~2017-08-18 10:49] MED LIST changes: +ASPIRIN325 M2 PO; +LISINOPRIL20 M1 PO; +NITROGLYCERIN1 EACH TOP; +PLAVIX75 M1 PO; +VITAMIN D5000 UNIT PO
[2017-08-18 14:43] LABS: ABSOLUTE BASOPHIL COUNT 0 /CUMM (0.0-0.2); ABSOLUTE EOSINOPHIL COUNT 0.1 /CUMM (0.0-0.7); ABSOLUTE GRANULOCYTE CT 4.5 /CUMM (1.4-6.5); ABSOLUTE MONOCYTE COUNT 0.5 /CUMM (0.10-0.60); BASOPHIL % 0.4 % (0.0-2.0); EOSINOPHIL % 1.1 % (0-5); GRANULOCYTE % 73.4 % (42.2-75.2); HEMATOCRIT 36.5 % (37-47); MEAN CORPUSCULAR HGB 29.5 PG (27.0-31.0); MEAN CORPUSCULAR HGB CONC 33.6 G/DL (33.0-37.0); MEAN CORPUSCULAR VOLUME 87.7 FL (81.0-99.0); PLATELET COUNT 217 /CUMM (130-400); RBC DISTRIBUTION WIDTH 12.7 % (11.5-14.5); RED BLOOD CELL CT 4.17 /CUMM (4.20-5.40); WHITE BLOOD CELL COUNT 6.1 /CUMM (4.8-10.8)
--- NOTE | 2017-08-18 16:02 | ED GENERAL ADULT ---
History of Present Illness General Chief Complaint: General Adult Stated Complaint: ANXIETY Source: patient, old records Exam Limitations: no limitations Vital Signs & Intake/Output Vital Signs & Intake/Output Vital Signs Date Time Temp Pulse Resp B/P B/P Pulse O2 O2 Flow FiO2 Mean Ox Delivery Rate 08/18 1628 98.6 69 18 168/64 95 Room Air 08/18 1118 97.5 67 20 142/76 99 Room Air Allergies Coded Allergies: Penicillins (ANAPHYLAXIS - TONGUE SWELLED - HOSPITALIZATION 10/07/15) clarithromycin (MOUTH AND THROAT BURNING - HOSPITALIZATION 10/07/15) propoxyphene (FELT WEIRD AND FELT IN ANOTHER WORLD PER PT 10/07/15) tetracycline (UNKNOWN PER PT 10/07/15) Reconcile Medications Aspirin (Aspirin*) 325 MG TABLET 325 MG PO DAILY HEART . Atenolol 25 MG TABLET 1 TAB PO DAILY HIGH BLOOD PRESSURE (Reported) Cholecalciferol (Vitamin D3) (Vitamin D) 5,000 UNIT TABLET 1 TAB PO DAILY SUPPLEMENT (Reported) Clonazepam (Klonopin) 0.5 MG TABLET 0.5 TAB PO DAILY ANXIETY (Reported) Clopidogrel Bisulfate (Plavix) 75 MG TABLET 75 MG PO DAILY HEART . Lisinopril 20 MG TABLET 20 MG PO DAILY HEART . Nitroglycerin (Nitroglycerin Patch) 0.4 MG/HOUR PATCH.TD24 0.4 MG TOP DAILY@ 1800 HEART . Simvastatin (Zocor*) 40 MG TABLET 1 TAB PO DAILY CHOLESTEROL (Reported) Triage Note: PT TO ED C/O "I DIDN'T FEEL RIGHT WHEN I WOKE UP". DENIES ANY PAIN. VSS. STATES SHE WAS RECENTLY DISCHARGED FROM HERE FOR A "SLIGHT HEART ATTACK". H/O ANXIETY AND PANIC ATTACKS. Triage Nurses Notes Reviewed? yes Onset: Abrupt Duration: day(s): (2), better, changing over time, gone now Timing: single episode today Injury Environment: home Severity: mild, moderate Severity Numbers: 5 No Modifying Factors: none LMP (ages 10-50): unknown : No Patient currently breastfeeds: No HPI: 72-year-old female past medical history of anxiety, panic disorder, coronary artery disease, and STEMI presents for evaluation of pain in her left shoulder pain in her left arm, anxiety and panic. Patient states that last night she noticed some "twinges" in her left shoulder and left arm. This causes her to have intense anxiety and feelings of panic which caused her to feel short of breath. No sweats or chills no hemoptysis no real chest pain. Patient was seen here about one week ago with an and STEMI. She feels like at that time she had chest pain which is different from what she has today. She has an appointment tomorrow with Dr. Moy her dehairer. She states that she took her clonazepam and feels somewhat better. There are no alleviating or aggravating factors. She states that the twinges are mild and rates it as a 3 out of 10. She states it feels similar to previous anxiety/panic attacks. No chest pain or shortness of breath on exertion. (Abdias Sosa) Past History Travel History Traveled to [place] past 21 day No Medical History Any Pertinent Medical History? see below for history Neurological: NONE EENT: NONE Cardiovascular: hypertension, hyperlipidemia, myocardial infarction Respiratory: NONE Gastrointestinal: NONE Hepatic: NONE Renal: NONE Musculoskeletal: NONE Psychiatric: anxiety, panic attacks Endocrine: NONE Blood Disorders: NONE Cancer(s): NONE VETERINARY INSPECTOR/Reproductive: NONE History of MRSA: No History of VRE: No History of CDIFF: No Surgical History Surgical History: non-contributory Psychosocial History Who do you live with Family Services at Home NONE What is your primary language Lao Tobacco Use: Never used ETOH Use: denies use Illicit Drug Use: denies illicit drug use Family History Hx Contributory? No (Abdias Sosa) Review of Systems Review of Systems Constitutional: Reports: no symptoms. EENTM: Reports: no symptoms. Respiratory: Reports: no symptoms. Cardiovascular: Reports: see HPI, chest pain. GI: Reports: no symptoms. Genitourinary: Reports: no symptoms. Musculoskeletal: Reports: see HPI, joint pain, muscle pain, muscle stiffness. Skin: Reports: no symptoms. Neurological/Psychological: Reports: no symptoms. Hematologic/Endocrine: Reports: no symptoms. Immunologic/Allergic: Reports: no symptoms. All Other Systems: Reviewed and Negative (Abdias Sosa) Physical Exam Physical Exam General Appearance: well developed/nourished, no apparent distress, alert, awake , thin Head: atraumatic, normal appearance Eyes: Bilateral: normal appearance, PERRL, EOMI. Ears, Nose, Throat: normal pharynx, normal ENT inspection, hearing grossly normal Neck: normal inspection, supple, full range of motion Respiratory: normal breath sounds, chest non-tender, no respiratory distress, lungs clear Cardiovascular: regular rate/rhythm, normal peripheral pulses Peripheral Pulses: 2+ radial (R), 2+ radial (L) Gastrointestinal: normal bowel sounds, soft, non-tender, no organomegaly Back: normal inspection, normal range of motion Extremities: THERE IS A LARGE HEMATOMA THAT EXTENDS FROM THE MID BICEP INTO THE LEFT SHOULDER. tHIS AREA IS TENDER TO PALPATION. pAIN IS INCREASED WITH RANGE OF MOTION. nO SWELLING NEUROVASCULAR SUPPLY IS INTACT PATIENT IS ABLE TO WALK WITHOUT DIFFICULTY.. Core Measures ACS in differential dx? Yes CVA/TIA Diagnosis: No Sepsis Present: No Sepsis Focused Exam Completed? No (Ambrosio HIDALGO,Abdias) Progress Differential Diagnoses I considered the following diagnoses in my evaluation of the patient: [Panic attack, anxiety, acute coronary syndrome, hematoma, muscle skeletal pain, pneumonia, PE, rib fracture, aortic dissection] Plan of Care: Orders Procedure Date/time Status Add-on Test (ER Only) 08/18 1652 Active TROPONIN LEVEL 08/18 1626 Complete EKG 08/18 1626 Active D-DIMER 08/18 1535 Complete TROPONIN LEVEL 08/18 1144 Complete COMPREHENSIVE METABOLIC PANEL 08/18 1144 Complete CBC WITHOUT DIFFERENTIAL 08/18 1144 Complete EKG 08/18 1144 Active Laboratory Tests 08/18/17 1731: Troponin I 0.02 08/18/17 1535: D-Dimer High Sensitivty < 200 08/18/17 1335: Anion Gap 12, Estimated GFR 44 L, BUN/Creatinine Ratio 18.3, Glucose 91, Calcium 11.3 H, Total Bilirubin 0.5, AST 26, ALT 37, Alkaline Phosphatase 72, Troponin I 0.01, Total Protein 7.8, Albumin 4.8, Globulin 3.0, Albumin/Globulin Ratio 1.6, CBC w Diff NO MAN DIFF REQ, RBC 4.17 L, MCV 87.7, MCH 29.5, MCHC 33.6, RDW 12.7, MPV 8.0, Gran % 73.4, Lymphocytes % 17.1 L, Monocytes % 8.0, Eosinophils % 1.1, Basophils % 0.4, Absolute Granulocytes 4.5, Absolute Lymphocytes 1.0 L, Absolute Monocytes 0.5, Absolute Eosinophils 0.1, Absolute Basophils 0 Patient seen and evaluated. Reporting pain in her left shoulder and left bicep. This area is tender to palpation with a hematoma. Patient was recently placed on blood thinners during her admission here this is the site of an IV. She has good peripheral pulses. D-dimer is negative. Patient currently denies any chest pain here. She states that the pain in her shoulder and arm has resolved. She appears clinically well. Patient had normal blood work including 2 normal troponins spaced 4 hours apart. HER-2 EKGs are unchanged. She does not have any chest pain or shortness of breath on exertion. Case was discussed with Dr. Levine from cardiology he feels discharge with outpatient follow-up tomorrow with Dr. Moy is appropriate given the current clinical however he does not know this patient personally. Patient appears clinically well. She wOULD prefer to go home. She was instructed to rest drink plenty fluids monitor symptoms. Tylenol for pain. Apply warm compresses to the shoulder and bicep. Follow-up with Dr. Moy tomorrow. Discussed return precautions in detail patient appears chronically well and agrees the plan. Case discussed with Dr. Cait Nixon they agree. Diagnostic Imaging: Viewed by Me: CT Scan. Discussed w/RAD: CT Scan. CXR Impression: PATIENT: PAIGE WRIGHT PRESENT AGE: 72 PATIENT ACCOUNT NO: [id number] : 45 LOCATION: [facility] ORDERING PHYSICIAN: Abdias HIDALGO SERVICE DATE: 08/18/17 EXAM TYPE: RAD - XRY-CHEST XRAY, TWO VIEWS EXAMINATION: CHEST 2 VIEWS CLINICAL INFORMATION: Chest pain, shortness of breath. COMPARISON: 08/06/2017. TECHNIQUE: PA and lateral views of the chest were obtained. FINDINGS: The cardiac silhouette is not enlarged. The mediastinal and hilar contours are unremarkable. There are neither pleural effusions nor pneumothoraces. There are no consolidations. The osseous structures are stable. IMPRESSION: No evidence for acute disease. DICTATED BY: Ramon Arellano MD DATE/ TIME DICTATED:08/18/171713 GATE MANAGER:JERRI DATE/TIME TRANSCRIBED: 08/18/171713 CONFIDENTIAL, DO NOT COPY WITHOUT APPROPRIATE AUTHORIZATION. < Electronically signed in Other Vendor System> SIGNED BY: Ramon Arellano MD 08/18/171721 Initial ED EKG: normal sinus rhythm, LEFT AXIS DEVIATION, ANTERIOR INFARCT OLD Prior EKG: unchanged Repeat EKG: unchanged (Abdias Sosa) Departure Departure Disposition: HOME OR SELF CARE Condition: Stable Clinical Impression Primary Impression: Chest pain Qualifiers: Chest pain type: unspecified Qualified Code: R07.9 - Chest pain, unspecified Referrals: Farzaneh STRATTON PHD,Jhon Metcalf MD,Allen Rojo (PCP/Family) Additional Instructions: Rest and drink plenty of fluids. Follow-up with Dr. Moy tomorrow as scheduled. Monitor symptoms return with any concerns. Departure Forms: Customer Survey General Discharge Information (Abdias Sosa) PA/CHIEF WARDEN Co-Sign Statement Statement: ED Attending supervision documentation- [X] I saw and evaluated the patient. I have also reviewed all the pertinent lab results and diagnostic results. I agree with the findings and the plan of care as documented in the PA's/CHIEF WARDEN's documentation. [X] I have reviewed the ED Record and agree with the PA's/CHIEF WARDEN's documentation. [] Additions or exceptions (if any) to the PAs/CHIEF WARDEN's note and plan are summarized below: [] (Tiffani STRATTON,Conner Cross) Critical Care Note Critical Care Note Critical Care Time: non-applicable (Abdias Sosa)
[2017-08-18 16:28] VITALS: BP 168/64
--- NOTE | 2017-08-18 17:22 | RADIOLOGY REPORT ---
EXAMINATION: CHEST 2 VIEWS CLINICAL INFORMATION: Chest pain, shortness of breath. COMPARISON: 08/06/2017. TECHNIQUE: PA and lateral views of the chest were obtained. FINDINGS: The cardiac silhouette is not enlarged. The mediastinal and hilar contours are unremarkable. There are neither pleural effusions nor pneumothoraces. There are no consolidations. The osseous structures are stable. IMPRESSION: No evidence for acute disease.
== END 2017-08-18 20:02 ==
LOC: ERH 10:49
PROVIDERS: Physician Assistant Medical
DX: R07.9 Chest pain, unspecified (principal)
CPT/HCPCS: 71046; 93005; 93010